=== PATIENT | female | born 1945 | race Caucasian/White ===

== ENCOUNTER 2017-05-02 18:42 | Inpatient (IN) | payer MEDICARE, BC ==
--- NOTE | 2017-05-02 19:18 | EDM.PDOC ---
ED HPI GENERAL MEDICAL PROBLEM - General Chief Complaint: Gastrointestinal Problem Stated Complaint: CHILLS NAUSEA ABDOMINAL PAIN Time Seen by Provider: 05/02/17 19:10 Source of Information: Reports: Patient History Limitations: Reports: No Limitations - History of Present Illness INITIAL COMMENTS - FREE TEXT/NARRATIVE: 72-year-old female presents the ED for evaluation of illness 8 days. Started out with fever chills nausea and diffuse abdominal discomfort. She has continued to feel unwell over the last week with intermittent rigors and chills lasting sometimes up to 10 minutes. There particular bad once again today. She has been living primarily on [employer]. She has an insulin-dependent diabetic and was recently changed from Lantus due to her insurance company [employer] not wanting to pay for this and started on I believe Traseba. She stopped this medication 3 days ago.. This was started the day before she became ill. She does have a mild paroxysmal cough not producing any sputum. Diffuse myalgia. Intermittent abdominal bloating feeling. Had some diarrhea initially but not recently. Is nauseated and does vomit at times. Denies any back pain. Has known valvular heart disease. Type II diabetic treated with insulin for greater than 10 years. She states her blood sugars have been pretty good around 120. Last week they've been running around 200. Onset: Sudden Onset Date: 04/24/17 Duration: Day(s): Location: Reports: Chest, Abdomen, Other (Intermittent nausea.) Quality: Reports: Other (Feels overall weak and tired and sick.) Severity: Moderate Improves with: Reports: None Worsens with: Reports: Eating (90 makes her feel much more abdominally bloated and nauseated.) Context: Denies: Activity, Exercise, Lifting, Sick Contact, Trauma, Other Associated Symptoms: Reports: Cough, Diaphoresis, Fever/Chills, Headaches, Loss of Appetite, Malaise, Nausea/Vomiting, Shortness of Breath, Weakness ( Intermittently.). Denies: Confusion, Chest Pain, cough w sputum, Rash, Seizure , Syncope Treatments [employer]: Reports: Other (see below) ( Severe and generalizedhas not taken any medication due to multiple allergies. ) - Related Data Allergies Allergy/AdvReac Type Severity Reaction Status Date / Time glipizide Allergy Abdominal Verified 05/02/17 20:10 Pain linagliptin [From Tradjenta] Allergy Abdominal Verified 05/02/17 20:10 Pain morphine Allergy Hallucinati Verified 05/02/17 20:08 ons oxycodone Allergy Hallucinati Verified 05/02/17 20:08 ons yeast, dried [yeast] Allergy Cough Verified 05/02/17 20:08 Home Meds: Home Meds Aspirin [Adult Low Dose Aspirin EC] 1 tab PO DAILY 05/02/17 [History] L.acidoph,Paracasei, B.lactis [Probiotic] 1 cap PO DAILY 05/02/17 [History] Losartan [Cozaar] 25 mg PO BID 05/02/17 [History] Metoprolol Succinate [Toprol Xl] 1 tab PO DAILY 05/02/17 [History] Tresiba Insulin SQ 05/02/17 [History] Past Medical History Cardiovascular History: Reports: Heart Murmur (Has known aortic stenosis and is followed yearly by cardiology with echo.), High Cholesterol, Hypertension, SOB on Exertion Musculoskeletal History: Reports: Arthritis, Back Pain, Chronic, Osteoarthritis Endocrine/Metabolic History: Reports: Diabetes, Type II (Currently controlled with insulin and more recently changed to Traseba.) Social & Family History - Living Situation & Occupation Living situation: Reports: Single Occupation: Retired ED ROS GENERAL - Review of Systems Review Of Systems: See Below Constitutional: Reports: Fever, Chills, Malaise, Weakness, Fatigue, Diaphoresis , Decreased Appetite, Weight Loss HEENT: Reports: Glasses Respiratory: Reports: Shortness of Breath, Cough, Sputum. Denies: Wheezing, Pleuritic Chest Pain, Hemoptysis (Occasional sputum production) Cardiovascular: Reports: Blood Pressure Problem, Dyspnea on Exertion (Chronic lower dependent edema usually just around the ankles.), Edema. Denies: Chest Pain, Claudication (Has known chronic hypertension), Lightheadedness, Orthopnea Endocrine: Reports: Fatigue, High Glucose (Glucose has been running around 200s usually well controlled with medications in the 03/28/49 stone.) GI/Abdominal: Reports: Abdominal Pain, Diarrhea (Has had one loose stool start with the onset of illness.), Decreased Appetite, Nausea (Intermittent vomiting chronic nausea for one week), Vomiting. Denies: Difficulty Swallowing : Reports: No Symptoms Musculoskeletal: Reports: Back Pain, Joint Pain (Knees hips lower back and shoulders at times) Skin: Reports: No Symptoms Neurological: Reports: Dizziness, Difficulty Walking (Due to weakness), Weakness Psychiatric: Reports: No Symptoms Hematologic/Lymphatic: Reports: No Symptoms Immunologic: Reports: No Symptoms ED EXAM, GI/ABD - Physical Exam Exam: See Below Exam Limited By: No Limitations General Appearance: Alert, WD/WN, Moderate Distress (Appears ill. Slightly warm to palpation. Is wearing a mask.) Eyes: Bilateral: Normal Appearance (No jaundice) Ears: Normal TMs Throat/Mouth: Normal Inspection, Normal Lips, Normal Oropharynx, Other Head: Atraumatic, Normocephalic (Tongue is mildly dry and coated) Neck: Normal Inspection, Supple, Non-Tender, Full Range of Motion. No: Carotid Bruit, Lymphadenopathy (R) Respiratory/Chest: No Accessory Muscle Use, Chest Non-Tender, Respiratory Distress (Tachypnea At rest. SPECT rate is 36/m. O2 sats are 92% on room air.), Rales (. A few rales right lung base.), Rhonchi (Scattered rhonchi throughout the posterior right lung field.) Cardiovascular: Normal Peripheral Pulses, Regular Rate, Rhythm, No Gallop, Systolic Murmur (Grade 2 holosystolic dyspneic murmur best heard at the left lateral sternal border compatible with aortic stenosis. Radiates to the right carotid artery). No: No Edema GI/Abdominal Exam: Distended (Diffuse hyperactive bowel sounds abdomen appears to be diffusely distended and mildly tympanitic to percussion upper abdomen compatible with some degree of aerophagia. Abdominal girth limits ability to palpate any solid organs. No localized area that would suggest peritonitis.), Tender (Perhaps mildly tender suprapubic left lower quadrant.), Abnormal Bowel Sounds, Other (Abdomen is very firm palpation). No: Guarding, Rigid, Rebound Back Exam: Normal Inspection, Decreased Range of Motion, Vertebral Tenderness ( Lumbar spine.). No: Full Range of Motion, CVA Tenderness (L), CVA Tenderness (R ), Muscle Spasm Extremities: Normal Inspection, Normal Range of Motion, Non-Tender, Pedal Edema (1+ pitting edema both lower extremities mostly just to just above the ankles.) Neurological: Alert, Oriented, CN II-XII Intact, Normal Cognition, No Motor/ Sensory Deficits Psychiatric: Flat Affect Skin Exam: Warm, Intact, Normal Color, No Rash EKG INTERPRETATION EKG Date: 05/02/17 Time: 20:05 Rhythm: NSR Rate (Beats/Min): 75 [place]: Normal P-Wave: Present QRS: Normal ST-T: Other (T-wave is mildly depressed in leads 1 and aVL with nonspecific finding.) QT: Prolonged (Mildly prolonged) EKG Interpretation Comments: Borderline ECG Course - Vital Signs Last Recorded V/S: Last Vital Signs Temp 36.2 C 05/02/17 21:46 Pulse 95 05/02/17 19:06 Resp 36 H 05/02/17 19:06 BP 181/54 H 05/02/17 19:06 Pulse Ox 94 L 05/02/17 19:56 - Orders/Labs/Meds Orders: Active Orders 24 hr Category Date Time Status Admission Status [Patient Status] [ADT] Routine ADT 05/02/17 22:03 Ordered Blood Glucose Check, Bedside [RC] ONETIME Care 05/02/17 19:21 Active EKG Documentation Completion [RC] STAT Care 05/02/17 19:36 Active Oxygen Therapy [RC] ASDIRECTED Care 05/02/17 19:38 Active Abdomen 1V Flat [CR] Stat Exams 05/02/17 19:23 Taken Chest 1V Frontal [CR] Stat Exams 05/02/17 19:18 Taken CULTURE BLOOD [BC] Stat Lab 05/02/17 19:33 Received CULTURE BLOOD [BC] Stat Lab 05/02/17 19:45 Received CULTURE URINE [RM] Stat Lab 05/02/17 21:04 Received Lactated Ringers [Ringers, Lactated] 1,000 ml Med 05/02/17 19:30 Active IV ASDIRECTED Levofloxacin/Dextrose 5%-Water [Levaquin in D5W 750 MG/ Med 05/02/17 21:06 Active 150 ML] 750 mg Premix Bag 1 bag IV ONETIME Magnesium Sulfate/Water [Magnesium Sulfate 2 GM in Med 05/02/17 20:57 Active Water 50 ML] 2 gm Premix Bag 1 bag IV ONETIME Blood Culture x2 Reflex Set [OM.PC] Stat Oth 05/02/17 19:19 Ordered Medication Orders Lactated Ringer's (Ringers, Lactated) 1,000 mls @ 500 mls/hr IV ASDIRECTED [facility] Last Admin: 05/02/17 19:35 Dose: 500 mls/hr Magnesium Sulfate 2 gm/ Premix 50 mls @ 25 mls/hr IV ONETIME ONE Stop: 05/02/17 22:56 Last Admin: 05/02/17 21:38 Dose: 25 mls/hr Levofloxacin/Dextrose 750 mg/ (Premix) 150 mls @ 100 mls/hr IV ONETIME ONE Stop: 05/02/17 22:35 Last Admin: 05/02/17 21:44 Dose: 100 mls/hr Labs: Laboratory Tests 05/02/17 05/02/17 05/02/17 Range/Units 19:33 19:33 19:33 WBC 15.81 H (3.98-10.04) K/mm3 RBC 4.34 (3.98-5.22) M/mm3 Hgb 12.3 (11.2-15.7) gm/L Hct 37.2 (34.1-44.9) % MCV 85.7 (79.4-94.8) fl MCH 28.3 (25.6-32.2) pg MCHC 33.1 (32.2-35.5) g/dl RDW Std Deviation 40.1 (36.4-46.3) fL Plt Count 268 (182-369) K/mm3 MPV 10.4 (9.4-12.3) fl Neutrophils % (Manual) 91 H (40-60) % Band Neutrophils % 0 (0-10) % Lymphocytes % (Manual) 6 L (20-40) % Atypical Lymphs % 0 % Monocytes % (Manual) 2 (2-10) % Eosinophils % (Manual) 1 (0.7-5.8) % Basophils % (Manual) 0 L (0.1-1.2) Platelet Estimate Adequate RBC Morph Comment Normal ESR (0-20) mm/hr PT 10.6 (8.0-13.0) SECONDS INR 0.99 Sodium 141 (136-145) mEq/L Potassium 3.2 L (3.5-5.1) mEq/L Chloride 102 (98-107) mEq/L Carbon Dioxide 25 (21-32) mEq/L Anion Gap 17.2 H (5-15) BUN 15 (7-18) mg/dL Creatinine 0.9 (0.55-1.02) mg/dL Est Cr Clr Drug Dosing TNP Estimated GFR (MDRD) > 60 (>60) mL/min BUN/Creatinine Ratio 16.7 (14-18) Glucose 211 H (83-115) mg/dL POC Glucose (83-110) mg/dL Hemoglobin A1c (4.50-6.20) % Lactic Acid (0.4-2.0) mmol/L Calcium 9.4 (8.5-10.1) mg/dL Magnesium 1.4 L (1.8-2.4) mg/dl Total Bilirubin 0.3 (0.2-1.0) mg/dL AST 16 (15-37) U/L ALT 27 (14-59) U/L Alkaline Phosphatase 84 (46-116) U/L CK-MB (CK-2) 0.6 (0-3.6) ng/ml Troponin I 0.076 H* (0.00-0.056) ng/mL C-Reactive Protein 5.9 H* (<1.0) mg/dL NT-Pro-B Natriuret Pep (0-125) pg/mL Total Protein 7.5 (6.4-8.2) g/dl Albumin 2.9 L (3.4-5.0) g/dl Globulin 4.6 gm/dL Albumin/Globulin Ratio 0.6 L (1-2) Lipase 91 (73-393) U/L Urine Color (Yellow) Urine Appearance (Clear) Urine pH (5.0-8.0) Ur Specific [place] (1.005-1.030) Urine Protein (Negative) Urine Glucose (UA) (Negative) Urine Ketones (Negative) Urine Occult Blood (Negative) Urine Nitrite (Negative) Urine Bilirubin (Negative) Urine Urobilinogen (0.2-1.0) Ur Leukocyte Esterase (Negative) Urine RBC (0-5) /hpf Urine WBC (0-5) /hpf Urine WBC Clumps (NOT SEEN) /hpf Ur Epithelial Cells (0-5) /hpf Amorphous Sediment (NOT SEEN) /hpf Urine Bacteria (FEW) /hpf Urine Mucus (FEW) /hpf Ketones (0.0-0.3) mM 05/02/17 05/02/17 05/02/17 Range/Units 19:33 19:33 19:33 WBC (3.98-10.04) K/mm3 RBC (3.98-5.22) M/mm3 Hgb (11.2-15.7) gm/L Hct (34.1-44.9) % MCV (79.4-94.8) fl MCH (25.6-32.2) pg MCHC (32.2-35.5) g/dl RDW Std Deviation (36.4-46.3) fL Plt Count (182-369) K/mm3 MPV (9.4-12.3) fl Neutrophils % (Manual) (40-60) % Band Neutrophils % (0-10) % Lymphocytes % (Manual) (20-40) % Atypical Lymphs % % Monocytes % (Manual) (2-10) % Eosinophils % (Manual) (0.7-5.8) % Basophils % (Manual) (0.1-1.2) Platelet Estimate RBC Morph Comment ESR 92 H (0-20) mm/hr PT (8.0-13.0) SECONDS INR Sodium (136-145) mEq/L Potassium (3.5-5.1) mEq/L Chloride (98-107) mEq/L Carbon Dioxide (21-32) mEq/L Anion Gap (5-15) BUN (7-18) mg/dL Creatinine (0.55-1.02) mg/dL Est Cr Clr Drug Dosing Estimated GFR (MDRD) (>60) mL/min BUN/Creatinine Ratio (14-18) Glucose (83-115) mg/dL POC Glucose (83-110) mg/dL Hemoglobin A1c 8.00 H (4.50-6.20) % Lactic Acid (0.4-2.0) mmol/L Calcium (8.5-10.1) mg/dL Magnesium (1.8-2.4) mg/dl Total Bilirubin (0.2-1.0) mg/dL AST (15-37) U/L ALT (14-59) U/L Alkaline Phosphatase (46-116) U/L CK-MB (CK-2) (0-3.6) ng/ml Troponin I (0.00-0.056) ng/mL C-Reactive Protein (<1.0) mg/dL NT-Pro-B Natriuret Pep 1381 H (0-125) pg/mL Total Protein (6.4-8.2) g/dl Albumin (3.4-5.0) g/dl Globulin gm/dL Albumin/Globulin Ratio (1-2) Lipase (73-393) U/L Urine Color (Yellow) Urine Appearance (Clear) Urine pH (5.0-8.0) Ur Specific [place] (1.005-1.030) Urine Protein (Negative) Urine Glucose (UA) (Negative) Urine Ketones (Negative) Urine Occult Blood (Negative) Urine Nitrite (Negative) Urine Bilirubin (Negative) Urine Urobilinogen (0.2-1.0) Ur Leukocyte Esterase (Negative) Urine RBC (0-5) /hpf Urine WBC (0-5) /hpf Urine WBC Clumps (NOT SEEN) /hpf Ur Epithelial Cells (0-5) /hpf Amorphous Sediment (NOT SEEN) /hpf Urine Bacteria (FEW) /hpf Urine Mucus (FEW) /hpf Ketones (0.0-0.3) mM 05/02/17 05/02/17 05/02/17 Range/Units 19:33 19:33 20:01 WBC (3.98-10.04) K/mm3 RBC (3.98-5.22) M/mm3 Hgb (11.2-15.7) gm/L Hct (34.1-44.9) % MCV (79.4-94.8) fl MCH (25.6-32.2) pg MCHC (32.2-35.5) g/dl RDW Std Deviation (36.4-46.3) fL Plt Count (182-369) K/mm3 MPV (9.4-12.3) fl Neutrophils % (Manual) (40-60) % Band Neutrophils % (0-10) % Lymphocytes % (Manual) (20-40) % Atypical Lymphs % % Monocytes % (Manual) (2-10) % Eosinophils % (Manual) (0.7-5.8) % Basophils % (Manual) (0.1-1.2) Platelet Estimate RBC Morph Comment ESR (0-20) mm/hr PT (8.0-13.0) SECONDS INR Sodium (136-145) mEq/L Potassium (3.5-5.1) mEq/L Chloride (98-107) mEq/L Carbon Dioxide (21-32) mEq/L Anion Gap (5-15) BUN (7-18) mg/dL Creatinine (0.55-1.02) mg/dL Est Cr Clr Drug Dosing Estimated GFR (MDRD) (>60) mL/min BUN/Creatinine Ratio (14-18) Glucose (83-115) mg/dL POC Glucose 206 H (83-110) mg/dL Hemoglobin A1c (4.50-6.20) % Lactic Acid 2.0 (0.4-2.0) mmol/L Calcium (8.5-10.1) mg/dL Magnesium (1.8-2.4) mg/dl Total Bilirubin (0.2-1.0) mg/dL AST (15-37) U/L ALT (14-59) U/L Alkaline Phosphatase (46-116) U/L CK-MB (CK-2) (0-3.6) ng/ml Troponin I (0.00-0.056) ng/mL C-Reactive Protein (<1.0) mg/dL NT-Pro-B Natriuret Pep (0-125) pg/mL Total Protein (6.4-8.2) g/dl Albumin (3.4-5.0) g/dl Globulin gm/dL Albumin/Globulin Ratio (1-2) Lipase (73-393) U/L Urine Color (Yellow) Urine Appearance (Clear) Urine pH (5.0-8.0) Ur Specific [place] (1.005-1.030) Urine Protein (Negative) Urine Glucose (UA) (Negative) Urine Ketones (Negative) Urine Occult Blood (Negative) Urine Nitrite (Negative) Urine Bilirubin (Negative) Urine Urobilinogen (0.2-1.0) Ur Leukocyte Esterase (Negative) Urine RBC (0-5) /hpf Urine WBC (0-5) /hpf Urine WBC Clumps (NOT SEEN) /hpf Ur Epithelial Cells (0-5) /hpf Amorphous Sediment (NOT SEEN) /hpf Urine Bacteria (FEW) /hpf Urine Mucus (FEW) /hpf Ketones 0.22 (0.0-0.3) mM //18 Range/Units 21:04 WBC (3.98-10.04) K/mm3 RBC (3.98-5.22) M/mm3 Hgb (11.2-15.7) gm/L Hct (34.1-44.9) % MCV (79.4-94.8) fl MCH (25.6-32.2) pg MCHC (32.2-35.5) g/dl RDW Std Deviation (36.4-46.3) fL Plt Count (182-369) K/mm3 MPV (9.4-12.3) fl Neutrophils % (Manual) (40-60) % Band Neutrophils % (0-10) % Lymphocytes % (Manual) (20-40) % Atypical Lymphs % % Monocytes % (Manual) (2-10) % Eosinophils % (Manual) (0.7-5.8) % Basophils % (Manual) (0.1-1.2) Platelet Estimate RBC Morph Comment ESR (0-20) mm/hr PT (8.0-13.0) SECONDS INR Sodium (136-145) mEq/L Potassium (3.5-5.1) mEq/L Chloride (98-107) mEq/L Carbon Dioxide (21-32) mEq/L Anion Gap (5-15) BUN (7-18) mg/dL Creatinine (0.55-1.02) mg/dL Est Cr Clr Drug Dosing Estimated GFR (MDRD) (>60) mL/min BUN/Creatinine Ratio (14-18) Glucose (83-115) mg/dL POC Glucose (83-110) mg/dL Hemoglobin A1c (4.50-6.20) % Lactic Acid (0.4-2.0) mmol/L Calcium (8.5-10.1) mg/dL Magnesium (1.8-2.4) mg/dl Total Bilirubin (0.2-1.0) mg/dL AST (15-37) U/L ALT (14-59) U/L Alkaline Phosphatase (46-116) U/L CK-MB (CK-2) (0-3.6) ng/ml Troponin I (0.00-0.056) ng/mL C-Reactive Protein (<1.0) mg/dL NT-Pro-B Natriuret Pep (0-125) pg/mL Total Protein (6.4-8.2) g/dl Albumin (3.4-5.0) g/dl Globulin gm/dL Albumin/Globulin Ratio (1-2) Lipase (73-393) U/L Urine Color Yellow (Yellow) Urine Appearance Cloudy H (Clear) Urine pH 5.5 (5.0-8.0) Ur Specific [place] > or = 1.030 (1.005-1.030) Urine Protein 2+ H (Negative) Urine Glucose (UA) Negative (Negative) Urine Ketones Negative (Negative) Urine Occult Blood 2+ H (Negative) Urine Nitrite Negative (Negative) Urine Bilirubin Negative (Negative) Urine Urobilinogen 0.2 (0.2-1.0) Ur Leukocyte Esterase 2+ H (Negative) Urine RBC 0-5 (0-5) /hpf Urine WBC >100 H (0-5) /hpf Urine WBC Clumps Moderate (NOT SEEN) /hpf Ur Epithelial Cells 0-5 (0-5) /hpf Amorphous Sediment Moderate H (NOT SEEN) /hpf Urine Bacteria Many H (FEW) /hpf Urine Mucus Many H (FEW) /hpf Ketones (0.0-0.3) mM Meds: Medications Generic Name Dose Route Start Last Admin Trade Name Freq PRN Reason Stop Dose Admin Lactated Ringer's 1,000 mls @ 500 mls/hr 05/02/17 19:30 05/02/17 19:35 Ringers, Lactated IV 500 mls/hr ASDIRECTED ANTONIA Administration Magnesium Sulfate 2 gm/ Premix 50 mls @ 25 mls/hr 05/02/17 20:57 05/02/17 21: 38 IV 05/02/17 22:56 25 mls/hr ONETIME ONE Administration Levofloxacin/Dextrose 750 mg/ 150 mls @ 100 mls/hr 05/02/17 21:06 05/02/17 21 :44 Premix IV 05/02/17 22:35 100 mls/hr ONETIME ONE Administration Discontinued Medications Generic Name Dose Route Start Last Admin Trade Name Freq PRN Reason Stop Dose Admin Acetaminophen 975 mg 05/02/17 19:22 05/02/17 19:35 Tylenol PO 05/02/17 19:23 975 mg NOW ONE Administration Furosemide 40 mg 05/02/17 21:04 05/02/17 21:33 Lasix IVPUSH 05/02/17 21:05 40 mg NOW ONE Administration Metoclopramide HCl 7.5 mg 05/02/17 19:26 05/02/17 19:35 Reglan IVPUSH 05/02/17 19:27 7.5 mg ONETIME ONE Administration - Radiology Interpretation Free Text/Narrative:: 72-year-old female presents to the ED with a weeklong history of fever chills with rigors at times. This suggests bacteremia. She thought that she probably had come down with the influenza but is just not getting better. She's been living primarily on [facility] over the last week she cannot eat due to nausea. She has had intermittent vomiting. She is a type II diabetic and moderately obese. Recently her diabetic control was changed from Lantus due to insurance [employer] to pay for this. She was switched to try nursing home subcutaneously daily day prior to becoming ill. He has no genitourinary complaints. She's had a few diarrhea stools. Likely I suspect she is suffering metabolic acidosis and the reason for her hyper ventilation with respiratory rate 36/m. She reports her blood sugars been running in the 200 range. She will be worked up for sepsis. A few rales are appreciated right lung bases. Rhonchi throughout the right lung compatible with possible pneumonia. Influenza screen will be done as well. I feel the will be lactated Ringer's at 500 mils per hour. Routine labs including blood cultures 2 ECG and one view of the chest and one view of the abdomen to be done. Clinically has a low-grade fever. Will give Tylenol 975 mg per ora. Reglan 7.5 mg IV for nausea relief. - Re-Assessments/Exams Free Text/Narrative Re-Assessment/Exam: 05/02/17 20:00: O2 sats drifted as low was 87%. Oxygen was therefore increased from 2-3 L/m by nasal cannula. ECG reveals sinus rhythm at 75/m without any signs of ischemia. 05/02/17 20:35 Labs revealed a elevated white count at 15.81 with a left shift of 91% neutrophils with no bands reported. Hemoglobin is 12.3 with hematocrit of 37.2. White count is normal 268,000. PT is 10.6 with an INR of 0.99. Sodium is 141 potassium slightly low at 3.2. Chloride 102 bicarbonate 25. Anion gap is mildly elevated at 17.2. BUNs 15. 0.9. GFR is greater than 60. Glucose at the bedside was 206. In the lab is 211. Hemoglobin A1c is 8.0. Lactic acid is 2.0. Calcium 9.4 magnesium low at 1.4. Bilirubin 0.3. Liver function otherwise normal CK-MB 0.6 troponin I is mildly elevated at 0.076 crit C-reactive protein is 5.9 BNP is 1381. Lipase is 91 ketones are 0.22. Patient is currently in the x -ray suite. Elevated troponin I is likely secondary to mild congestive failure but will need to be trended. ECG does not show any signs of ischemia. 05/02/17 20:56 chest x-ray reveals borderline cardiomegaly with diffuse vascular congestion but no infiltrates to suggest a pneumonia. No pleural effusions evident. X-ray of the abdomen shows stool throughout the right hemicolon air scattered throughout the remainder the colon but no sign of bowel obstruction or other obvious problems. Awaiting urinalysis. If this is normal will proceed with CT of the abdomen and pelvis with oral and IV contrast. She has combination of mild hypokalemia and hypomagnesemia. I will give HER-2 grams of magnesium intravenously at this time. No need for antibiotics but holding off until source of infection is clarified. We'll also give her Lasix 40 mg IV to improve her hypoxic state 2 to mild congestive failure. 05/02/17 21:40 Urinalysis has returned and reveals gross infective process with greater than 100 pus cells per per field and numerous clumps of WBCs. I will therefore speak with the on-call hospitalist with a view to admission to hospital regarding urinary tract infection with bacteremia. This would suggest an upper urinary tract infection. 05/02/17 22:05 I have spoken with on-call hospitalist-- Dr. Lewis and he is accepted care of this patient. Patient is to be admitted to the med surgery floor on telemetry. Departure - Departure Time of Disposition: 22:07 Disposition: Admitted As Inpatient 65 Condition: Fair Clinical Impression: Pyelonephritis, Hypomagnesemia, Hypokalemia, Elevated troponin I level CHF (congestive heart failure) Qualifiers: Heart failure type: diastolic Heart failure chronicity: acute on chronic Qualified Code(s): I50.33 - Acute on chronic diastolic (congestive) heart failure - Discharge Information Referrals: Sona Ace, TAPPER BIT [Primary Care Provider] - Forms: ED Department Discharge - My Orders Last 24 Hours: My Active Orders 05/02/17 19:18 Chest 1V Frontal [CR] Stat 05/02/17 19:19 Blood Culture x2 Reflex Set [OM.PC] Stat 05/02/17 19:21 Blood Glucose Check, Bedside [RC] ONETIME 05/02/17 19:23 Abdomen 1V Flat [CR] Stat 05/02/17 19:30 Lactated Ringers [Ringers, Lactated] 1,000 ml IV ASDIRECTED 05/02/17 19:33 CULTURE BLOOD [BC] Stat 05/02/17 19:36 EKG Documentation Completion [RC] STAT 05/02/17 19:38 Oxygen Therapy [RC] ASDIRECTED 05/02/17 19:45 CULTURE BLOOD [BC] Stat 05/02/17 20:57 Magnesium Sulfate/Water [Magnesium Sulfate 2 GM in Water 50 ML] 2 gm Premix Bag 1 bag IV ONETIME 05/02/17 21:04 CULTURE URINE [RM] Stat 05/02/17 21:06 Levofloxacin/Dextrose 5%-Water [Levaquin in D5W 750 MG/150 ML] 750 mg Premix Bag 1 bag IV ONETIME 05/02/17 22:03 Admission Status [Patient Status] [ADT] Routine - Assessment/Plan Last 24 Hours: My Active Orders 05/02/17 19:18 Chest 1V Frontal [CR] Stat 05/02/17 19:19 Blood Culture x2 Reflex Set [OM.PC] Stat 05/02/17 19:21 Blood Glucose Check, Bedside [RC] ONETIME 05/02/17 19:23 Abdomen 1V Flat [CR] Stat 05/02/17 19:30 Lactated Ringers [Ringers, Lactated] 1,000 ml IV ASDIRECTED 05/02/17 19:33 CULTURE BLOOD [BC] Stat 05/02/17 19:36 EKG Documentation Completion [RC] STAT 05/02/17 19:38 Oxygen Therapy [RC] ASDIRECTED 05/02/17 19:45 CULTURE BLOOD [BC] Stat 05/02/17 20:57 Magnesium Sulfate/Water [Magnesium Sulfate 2 GM in Water 50 ML] 2 gm Premix Bag 1 bag IV ONETIME 05/02/17 21:04 CULTURE URINE [RM] Stat 05/02/17 21:06 Levofloxacin/Dextrose 5%-Water [Levaquin in D5W 750 MG/150 ML] 750 mg Premix Bag 1 bag IV ONETIME 05/02/17 22:03 Admission Status [Patient Status] [ADT] Routine
[2017-05-02] MEDS ORDERED: Acetaminophen 325 MG Tab PO ONE (19:22)
[2017-05-02] MEDS ORDERED: Metoclopramide 10 MG/2 ML SDV IVPUSH ONE (19:26)
[2017-05-02] MEDS ORDERED: Lactated Ringers 1,000 ML IV SCH (19:30)
[2017-05-02] MEDS ORDERED: Magnesium Sulfate/Water 2 GM in Premix Bag 1 BAG IV ONE (20:57)
[2017-05-02] MEDS ORDERED: Furosemide 40 MG/4 ML VIAL IVPUSH ONE (21:04)
[2017-05-02] MEDS ORDERED: Levofloxacin/Dextrose 5%-Water 750 MG in Premix Bag 1 BAG IV ONE (21:06)
[2017-05-02] MEDS ORDERED: Sodium Chloride 0.9% 1,000 ML IV SCH (22:15)
[2017-05-02] MEDS ORDERED: hydrALAZINE 20 MG/ML SDV IVPUSH PRN (23:39)
[2017-05-02] MEDS ORDERED: Metoprolol Tartrate 5 MG/5 ML SDV IVPUSH PRN (23:39)
[2017-05-02] MEDS ORDERED: LORazepam 2 MG/ML SDV IVPUSH PRN (23:39)
[2017-05-02] MEDS ORDERED: Docusate Sodium 100 MG Cap PO PRN (23:40)
[2017-05-02] MEDS ORDERED: Polyethylene Glycol 3350 Powder 17 GM Packet PO PRN (23:40)
[2017-05-02] MEDS ORDERED: Bisacodyl 5 MG Tab PO PRN (23:40)
[2017-05-02] MEDS ORDERED: Albuterol/Ipratropium 3.0-0.5 MG/3 ML Neb Soln NEB PRN (23:40)
[2017-05-02] MEDS ORDERED: LORazepam 2 MG/ML SDV IV PRN (23:40)
[2017-05-02] MEDS ORDERED: Acetaminophen/HYDROcodone 325-5 MG Tab PO PRN (23:40)
[2017-05-02] MEDS ORDERED: Promethazine 12.5 MG in Sodium Chloride 0.9% 50 ML IV PRN (23:40)
[2017-05-02] MEDS ORDERED: Temazepam 7.5 MG Cap PO PRN (23:40)
--- NOTE | 2017-05-02 23:49 | PCM.HP ---
H&P History of Present Illness - General Date of Service: 05/02/17 Admit Problem/Dx: Admission Diagnosis/Problem Admission Diagnosis/Problem Upper urinary tract infection Source of Information: Patient, Old Records, Provider, RN Notes Reviewed History Limitations: Reports: No Limitations - History of Present Illness Initial Comments - Free Text/Narative: This is a 72 yo elderly white female with past medical hx/o HTN, HLD, SOB on Exertion, OA/DJD, Fibromyalgia, Back Pain, and who comes in for further evaluation of ongoing illness that started 8 days ago. Patient started initially with fever and chills then subsequently developed abdominal discomfort associated with nausea and abdominal bloating. She is not able to keep any solid food. In fact, she is mostly taking in gatorade to stay hydrated. Patient carries a 10 year hx/o DM2 on insulin regimen with Tresiba. At this point, she also reports paroxysmal non-productive cough with diffuse myalgia, reduced appetite and generalized weakness. Her initial diagnostic workup shows a CBC remarkable for WBC of 15.81, neutrophils of 91%, lymphocytes of 6%, and ESR of 92. Her chemistry is remarkable for potassium of 3.2, anion gap of 17.2, glucose of 211, hemoglobin A1c of 8, magnesium of 1.4, troponin of 0.076, C-reactive protein of 5.19, proBNP of 1381, and albumin at 2.9. Her UA is suggestive of urinary tract infection. Her chest and abdominal x-rays both show no acute abnormal findings. Patient is being admitted for acute viral illness and urinary tract infection. She is full code. - Related Data Allergies/Adverse Reactions: Allergies Allergy/AdvReac Type Severity Reaction Status Date / Time glipizide AdvReac Abdominal Verified 05/03/17 07:06 Pain linagliptin [From Tradjenta] AdvReac Abdominal Verified 05/03/17 07:06 Pain morphine AdvReac Hallucinati Verified 05/03/17 07:06 ons oxycodone AdvReac Hallucinati Verified 05/03/17 07:06 ons yeast, dried [yeast] AdvReac Cough Verified 05/03/17 07:06 Home Medications: Home Meds Aspirin [Adult Low Dose Aspirin EC] 1 tab PO DAILY 05/02/17 [History] L.acidoph,Paracasei, B.lactis [Probiotic] 1 cap PO DAILY 05/02/17 [History] Losartan [Cozaar] 25 mg PO BID 05/02/17 [History] Metoprolol Succinate [Toprol Xl] 1 tab PO DAILY 05/02/17 [History] Tresiba Insulin SQ 05/02/17 [History] Past Medical History HEENT History: Reports: Cataract, Macular Degeneration Cardiovascular History: Reports: Heart Murmur (Has known aortic stenosis and is followed yearly by cardiology with echo.), High Cholesterol, Hypertension, SOB on Exertion Gastrointestinal History: Reports: Irritable Bowel Syndrome METALSMITH History: Reports: Musculoskeletal History: Reports: Arthritis, Back Pain, Chronic, Osteoarthritis Endocrine/Metabolic History: Reports: Diabetes, Type II (Currently controlled with insulin and more recently changed to Traseba.) Oncologic (Cancer) History: Reports: Basal Cell Carcinoma - Past Surgical History HEENT Surgical History: Reports: Cataract Surgery Cardiovascular Surgical History: Reports: Valve Replacement Musculoskeletal Surgical History: Reports: Knee Replacement, Shoulder Surgery Social & Family History - Family History Family Medical History: Noncontributory - Tobacco Use Smoking Status *Q: Never Smoker - Recreational Drug Use Recreational Drug Use: No - Living Situation & Occupation Living situation: Reports: Single Occupation: Retired H&P Review of Systems - Review of Systems: Review Of Systems: See Below General: Reports: Fever, Chills, Malaise, Weakness, Fatigue, Decreased Appetite HEENT: Reports: No Symptoms Pulmonary: Reports: Shortness of Breath, Cough, Sputum Cardiovascular: Reports: Dyspnea on Exertion, Edema, Blood Pressure Problem Gastrointestinal: Reports: Abdominal Pain, Diarrhea, Decreased Appetite, Nausea , Vomiting. Denies: Anorexia, Difficulty Swallowing Genitourinary: Reports: No Symptoms Musculoskeletal: Reports: Back Pain, Joint Pain Skin: Reports: Diaphoresis. Denies: Cyanosis, Jaundice, Mottled, Pallor, Bruising Psychiatric: Denies: Confusion, Depression, Mood Lability, Anxiety, Hallucinations, Suicidal Ideation Neurological: Reports: Weakness. Denies: Confusion, Dizziness, Syncope, Difficulty Walking, Gait Disturbance Hematologic/Lymphatic: Reports: No Symptoms Immunologic: Reports: No Symptoms Exam - Exam Exam: See Below - Vital Signs Vital Signs: Last Vital Signs Temp 36.2 C 05/02/17 21:46 Pulse 95 05/02/17 19:06 Resp 36 H 05/02/17 19:06 BP 181/54 H 05/02/17 19:06 Pulse Ox 94 L 05/02/17 19:56 - Exam Quality Assessment: Supplemental Oxygen General: Alert, Oriented, Cooperative, Mild Distress HEENT: Conjunctiva Clear, EACs Clear, EOMI, Hearing Intact, Mucosa Moist & [employer] , Nares Patent, Normal Nasal Septum, Posterior Pharynx Clear, Pupils Equal, Pupils Reactive Neck: Supple, Trachea Midline, +2 Carotid Pulse wo Bruit Lungs: Clear to Auscultation, Normal Respiratory Effort Cardiovascular: Regular Rate, Regular Rhythm, Systolic Murmur GI/Abdominal Exam: Normal Bowel Sounds, Soft, Non-Tender, No Organomegaly, No Distention, No Abnormal Bruit (Female) Exam: Deferred Rectal (Female) Exam: Deferred Back Exam: Normal Inspection, Decreased Range of Motion Extremities: Normal Inspection, Normal Range of Motion, Non-Tender, No Pedal Edema, Normal Capillary Refill Peripheral Pulses: 2+: Posterior Tibial (L), Posterior Tibial (R), Dorsalis Pedis (L), Dorsalis Pedis (R) Skin: Warm, Dry, Intact Neuro Extensive - Mental Status: Oriented x3, Normal Cognition, Memory Intact Neuro Extensive - Motor, Sensory, Reflexes: CN II-XII Intact, Normal Gait Psychiatric: Alert, Normal Affect, Normal Mood - Patient Data Result Diagrams: 05/03/17 05:36 05/03/17 05:36 EKG INTERPRETATION EKG Date: 05/02/17 Time: 20:05 Rhythm: NSR Rate (Beats/Min): 75 [place]: Normal P-Wave: Present QRS: Normal QT: Prolonged *Q Meaningful Use (ADM) - VTE *Q VTE Criteria *Q: - Stroke *Q Stroke Criteria *Q: - AMI *Q AMI Criteria *Q: Problem List Initiated/Reviewed/Updated: Yes Orders Last 24hrs: Active Orders 24 hr Category Date Time Status Sodium Chloride 0.9% [Normal Saline] 1,000 ml Med 05/02/17 22:15 Active IV ASDIRECTED Medication Orders Lactated Ringer's (Ringers, Lactated) 1,000 mls @ 500 mls/hr IV ASDIRECTED ANTONIA Last Admin: 05/02/17 19:35 Dose: 500 mls/hr Sodium Chloride (Normal Saline) 1,000 mls @ 100 mls/hr IV ASDIRECTED ANTONIA Last Admin: 05/02/17 22:09 Dose: 100 mls/hr Assessment/Plan Comment:: Assessment/Plan: Acute: Viral Illness - CXR shows no obvious infiltrates - Influenza screening negative - Respiratory Panel - Supportive Care Cystitis - UA suggestive of UTI - Risk factors: DM2 - UA Cx pending - Received IV Levaquin in ED; will switch to Rocephin Generalized Weakness - 2/2 on going illness and poor oral intake - PT/OT consult Poor Appetite - Offered stimulant; refused - Hopefully it'll get better Electrolytes Abnormality - K 3.2 and Mg 1.4 - Replete and monitor Chronic: HTN HLD SOB on Exertion OA/DJD Back Pain Fibromyalgia DM2 Plan: Admit to the floor Routine AM Labs Resume Home Meds Blood Culture x2 Monospot and Respiratory Panel PT/OT consult O2 to wean off SW/CM for d/c planning Code Status: 1
[2017-05-02] MEDS ORDERED: 50% Dextrose in Water 50 ML Syringe IVPUSH PRN (23:59)
[2017-05-03] MEDS ORDERED: Potassium Chloride 20 MEQ Tab.ER PO ONE (00:30)
[2017-05-03] MEDS: Potassium Chloride 20 MEQ Tab.ER PO SCH ×2 (05:04→08:24)
[2017-05-03] MEDS ORDERED: Azithromycin 500 MG in Sodium Chloride 0.9% 250 ML IV SCH (07:00)
--- NOTE | 2017-05-03 07:16 | PCM.PN ---
- General Info Date of Service: 05/03/17 Admission Dx/Problem (Free Text): Admission Diagnosis/Problem Admission Diagnosis/Problem Upper urinary tract infection Subjective Update: Follow Up Functional Status: Reports: Pain Controlled, Tolerating Diet, Ambulating, Urinating - Review of Systems General: Denies: Fever, Weakness, Fatigue, Malaise HEENT: Reports: No Symptoms Pulmonary: Denies: Shortness of Breath, Cough, Sputum Cardiovascular: Denies: Chest Pain, Palpitations, Dyspnea on Exertion, Lightheadedness Gastrointestinal: Denies: Abdominal Pain, Constipation, Decreased Appetite, Diarrhea, Difficulty Swallowing, Nausea, Vomiting Genitourinary: Reports: No Symptoms Musculoskeletal: Reports: No Symptoms Skin: Denies: Cyanosis, Mottled, Pallor, Diaphoresis, Rash Neurological: Denies: Confusion, Difficulty Walking, Weakness, Gait Disturbance Psychiatric: Denies: Depression, Anxiety, Agitation, Hallucinations Systems Review Comment:: No significant overnight or acute issues. She did not sleep well last night but refused to take sleeping pill due to "nightmares or bad dreams" associated with it. She otherwise feels better and no other complaints. Her K and Mg level slightly low this morning. She is pos for GNR on UA culture. - Patient Data Vitals - Most Recent: Last Vital Signs Temp 36.4 C 05/02/17 23:04 Pulse 71 05/03/17 05:13 Resp 16 05/03/17 05:13 BP 122/68 05/03/17 05:13 Pulse Ox 94 L 05/03/17 05:13 Weight - Most Recent: 103.737 kg I&O - Last 24 Hours: Intake & Output 05/02/17 05/03/17 05/03/17 22:59 06:59 14:59 Intake Total 1486 Output Total 2200 Balance -714 Lab Results Last 24 Hours: Laboratory Results - last 24 hr 05/03/17 05/03/17 05/03/17 Range/Units 05:36 05:36 05:39 WBC 13.16 H (3.98-10.04) K/mm3 RBC 4.12 (3.98-5.22) M/mm3 Hgb 11.6 (11.2-15.7) gm/L Hct 35.5 (34.1-44.9) % MCV 86.2 (79.4-94.8) fl MCH 28.2 (25.6-32.2) pg MCHC 32.7 (32.2-35.5) g/dl RDW Std Deviation 40.0 (36.4-46.3) fL Plt Count 274 (182-369) K/mm3 MPV 10.4 (9.4-12.3) fl Neut % (Auto) 83.4 H (34.0-71.1) % Lymph % (Auto) 9.7 L (19.3-51.7) % [place] % (Auto) 5.5 (4.7-12.5) % Eos % (Auto) 0.7 (0.7-5.8) Baso % (Auto) 0.2 (0.1-1.2) % Neut # (Auto) 10.98 H (1.56-6.13) K/mm3 Lymph # (Auto) 1.27 (1.18-3.74) K/mm3 [place] # (Auto) 0.72 H (0.24-0.36) K/mm3 Eos # (Auto) 0.09 (0.04-0.36) K/mm3 Baso # (Auto) 0.03 (0.01-0.08) K/mm3 Manual Slide Review Abnormal smear Sodium 139 (136-145) mEq/L Potassium 3.4 L (3.5-5.1) mEq/L Chloride 100 (98-107) mEq/L Carbon Dioxide 29 (21-32) mEq/L Anion Gap 13.4 (5-15) BUN 14 (7-18) mg/dL Creatinine 1.0 (0.55-1.02) mg/dL Est Cr Clr Drug Dosing 45.08 mL/min Estimated GFR (MDRD) 54 (>60) mL/min BUN/Creatinine Ratio 14.0 (14-18) Glucose 216 H (83-115) mg/dL POC Glucose 225 H (83-110) mg/dL Calcium 8.7 (8.5-10.1) mg/dL Magnesium 1.7 L (1.8-2.4) mg/dl C-Reactive Protein 6.8 H* (<1.0) mg/dL Med Orders - Current: Current Medications Acetaminophen (Tylenol) 650 mg PO Q4H PRN PRN Reason: Pain (Mild 1-3)/fever Hydrocodone Bitart/Acetaminophen ([place] 325-5 Mg) 1 tab PO Q4H PRN PRN Reason: Pain (moderate 4-6) Albuterol/Ipratropium (Duoneb 3.0-0.5 Mg/3 Ml) 3 ml NEB Q4H PRN PRN Reason: Shortness Of Breath/wheezing Aspirin (Halfprin) 81 mg PO DAILY [facility] Bisacodyl (Dulcolax) 5 mg PO DAILY PRN PRN Reason: Constipation Dextrose/Water (Dextrose 50% In Water) 50 ml IVPUSH ASDIRECTED PRN PRN Reason: Hypoglycemia Docusate Sodium (Colace) 100 mg PO BID PRN PRN Reason: Constipation Enoxaparin Sodium (Lovenox) 40 mg SUBCUT DAILY [facility] Hydralazine HCl (Apresoline) 20 mg IVPUSH Q4H PRN PRN Reason: Hypertension Lactated Ringer's (Ringers, Lactated) 1,000 mls @ 500 mls/hr IV ASDIRECTED [facility] Last Admin: 05/02/17 19:35 Dose: 500 mls/hr Sodium Chloride (Normal Saline) 1,000 mls @ 100 mls/hr IV ASDIRECTED [facility] Last Admin: 05/02/17 22:09 Dose: 100 mls/hr Promethazine HCl 12.5 mg/ (Sodium Chloride) 50.5 mls @ 100 mls/hr IV Q6H PRN PRN Reason: Nausea/Vomiting Azithromycin 500 mg/ Sodium (Chloride) 250 mls @ 250 mls/hr IV Q24H [facility] Last Admin: 05/03/17 06:37 Dose: 250 mls/hr Insulin Aspart (Novolog) 0 unit SUBCUT QIDACANDBED [facility] PRN Reason: Protocol Lorazepam (Ativan) 2 mg IVPUSH Q4H PRN PRN Reason: Seizures Lorazepam (Ativan) 1 mg IV Q6H PRN PRN Reason: Anxiety Losartan Potassium (Cozaar) 25 mg PO BID [facility] Magnesium Sulfate (Pharmacy To Dose - Magnesium Replacement) 0 dose .XX ASDIRECTED PRN PRN Reason: RX TO WATCH MAG LEVELS Metoprolol Succinate (Toprol Xl) 50 mg PO DAILY [facility] Metoprolol Tartrate (Lopressor) 5 mg IVPUSH Q4H PRN PRN Reason: Tachycardia Ondansetron HCl (Zofran) 4 mg IV Q6H PRN PRN Reason: Nausea/Vomiting Polyethylene Glycol (Miralax) 17 gm PO DAILY PRN PRN Reason: Constipation Potassium Chloride (Pharmacy To Dose - Potassium Replacement) 0 dose .XX ASDIRECTED PRN PRN Reason: RX TO WATCH K LEVELS Potassium Chloride (Klor-Con M20) 40 meq PO Q4H ANTONIA Stop: 05/03/17 08:31 Last Admin: 05/03/17 05:04 Dose: 40 meq Saccharomyces Boulardii (Florastor) 250 mg PO DAILY [facility] Senna/Docusate Sodium (Senna Plus) 1 tab PO BID PRN PRN Reason: Constipation Temazepam (Restoril) 7.5 mg PO BEDTIME PRN PRN Reason: Sleep Discontinued Medications Acetaminophen (Tylenol) 975 mg PO NOW ONE Stop: 05/02/17 19:23 Last Admin: 05/02/17 19:35 Dose: 975 mg Furosemide (Lasix) 40 mg IVPUSH NOW ONE Stop: 05/02/17 21:05 Last Admin: 05/02/17 21:33 Dose: 40 mg Magnesium Sulfate 2 gm/ Premix 50 mls @ 25 mls/hr IV ONETIME ONE Stop: 05/02/17 22:56 Last Admin: 05/02/17 21:38 Dose: 25 mls/hr Levofloxacin/Dextrose 750 mg/ (Premix) 150 mls @ 100 mls/hr IV ONETIME ONE Stop: 05/02/17 22:35 Last Admin: 05/02/17 21:44 Dose: 100 mls/hr Metoclopramide HCl (Reglan) 7.5 mg IVPUSH ONETIME ONE Stop: 05/02/17 19:27 Last Admin: 05/02/17 19:35 Dose: 7.5 mg Potassium Chloride (Klor-Con M20) 40 meq PO STAT ONE Stop: 05/03/17 00:31 Last Admin: 05/03/17 00:44 Dose: 40 meq - Exam Quality Assessment: No: Supplemental Oxygen General: Alert, Oriented, Cooperative, No Acute Distress HEENT: Pupils Equal, Pupils Reactive, EOMI, Mucous Membr. Moist/[place] Neck: Supple, Trachea Midline, No JVD, No Thyromegaly Lungs: Clear to Auscultation, Normal Respiratory Effort Cardiovascular: Regular Rate, Regular Rhythm GI/Abdominal Exam: Normal Bowel Sounds, Soft, Non-Tender, No Organomegaly, No Distention, No Abnormal Bruit, No Mass (Female) Exam: Deferred Back Exam: Normal Inspection, Decreased Range of Motion Extremities: Normal Inspection, Normal Range of Motion, Non-Tender, No Pedal Edema, Normal Capillary Refill Peripheral Pulses: 2+: Dorsalis Pedis (L), Dorsalis Pedis (R) Skin: Warm, Dry, Intact Neurological: No New Focal Deficit Psy/Mental Status: Alert, Normal Affect, Normal Mood - Problem List Review Problem List Initiated/Reviewed/Updated: Yes - My Orders Last 24 Hours: My Active Orders 05/02/17 23:39 LORazepam [Ativan] 2 mg IVPUSH Q4H PRN Metoprolol Tartrate [Lopressor] 5 mg IVPUSH Q4H PRN hydrALAZINE [Apresoline] 20 mg IVPUSH Q4H PRN 05/02/17 23:40 Height and Weight [RC] 0400 Intake and Output [RC] 04,16 VTE/DVT Education [RC] 10,22 Vital Signs [RC] Q4HR Acetaminophen [Tylenol] 650 mg PO Q4H PRN Acetaminophen/HYDROcodone [[place] 325-5 MG] 1 tab PO Q4H PRN Albuterol/Ipratropium [DuoNeb 3.0-0.5 MG/3 ML] 3 ml NEB Q4H PRN Bisacodyl [Dulcolax] 5 mg PO DAILY PRN Docusate Sodium [Colace] 100 mg PO BID PRN Docusate Sodium/Sennosides [Senna Plus] 1 tab PO BID PRN LORazepam [Ativan] 1 mg IV Q6H PRN Ondansetron [Zofran] 4 mg IV Q6H PRN Polyethylene Glycol 3350 [MiraLAX] 17 gm PO DAILY PRN Promethazine [Phenergan] 12.5 mg Sodium Chloride 0.9% [Normal Saline] 50 ml IV Q6H Temazepam [Restoril] 7.5 mg PO BEDTIME PRN Resuscitation Status Routine 05/02/17 23:41 Sequential Compression Device [OM.PC] Per Unit Routine 05/02/17 23:45 Antiembolic Devices [RC] 10,22 Magnesium Rep Pharmacy to Dose [Pharmacy to Dose - Magnesium Replacement] 0 dose .XX ASDIRECTED PRN Potassium Rep Pharmacy to Dose [Pharmacy to Dose - Potassium Replacement] 0 dose .XX ASDIRECTED PRN 05/02/17 23:47 Consult to Spiritual Care [CONS] Routine OT Evaluation and Treatment [CONS] Routine PT Evaluation and Treatment [CONS] Routine Respiratory Care Assess and Treatment [CONS] Routine 05/02/17 23:48 RESPIRATORY PANEL BY PCR [MREF] Stat 05/02/17 23:59 Blood Glucose Check, Bedside [RC] QIDACANDBED Dextrose 50% in Water 50 ml IVPUSH ASDIRECTED PRN 05/02/17 Dinner Regular Diet [DIET] 05/03/17 04:30 Potassium Chloride [Klor-Con M20] 40 meq PO Q4H 05/03/17 07:00 Azithromycin [Zithromax] 500 mg Sodium Chloride 0.9% [Normal Saline] 250 ml IV Q24H Insulin Aspart [NovoLOG] See Protocol SUBCUT QIDACANDBED 05/03/17 09:00 Aspirin [Halfprin] 81 mg PO DAILY Enoxaparin [Lovenox] 40 mg SUBCUT DAILY Losartan [Cozaar] 25 mg PO BID Metoprolol Succinate [Toprol XL] 50 mg PO DAILY Saccharomyces Boulardii [Florastor] 250 mg PO DAILY 05/04/17 05:11 BASIC METABOLIC PANEL,BMP [CHEM] AM C-REACTIVE PROTEIN [CHEM] AM CBC WITH AUTO DIFF [HEME] AM MAGNESIUM [CHEM] AM 05/05/17 05:11 BASIC METABOLIC PANEL,BMP [CHEM] AM C-REACTIVE PROTEIN [CHEM] AM CBC WITH AUTO DIFF [HEME] AM MAGNESIUM [CHEM] AM 05/06/17 05:11 BASIC METABOLIC PANEL,BMP [CHEM] AM C-REACTIVE PROTEIN [CHEM] AM CBC WITH AUTO DIFF [HEME] AM MAGNESIUM [CHEM] AM 05/07/17 05:11 C-REACTIVE PROTEIN [CHEM] AM CBC WITH AUTO DIFF [HEME] AM MAGNESIUM [CHEM] AM - Plan Plan:: Assessment/Plan: Acute: Viral Illness - CXR shows no obvious infiltrates - Influenza and Mononucleosis screening both negative - Respiratory Panel and Blood Cultures - pending - Supportive Care Cystitis - UA pos for GNR - Risk factors: DM2 - UA Cx pending - Rocephin 1 gram IV daily Generalized Weakness - 2/2 on going illness and poor oral intake - Continue PT/OT Resolved: S/p Poor Appetite - Offered stimulant; refused Chronic: HTN HLD SOB on Exertion OA/DJD Back Pain DM2 Plan: She is much better clinically D/c Azithromycin Routine AM Labs Continue PT/OT consult SW/CM for d/c planning Encourage to ambulate as tolerated Code Status: 1 Possible d/c in AM
[2017-05-03] MEDS: Losartan 25 MG Tab PO SCH ×2 (08:24→21:42)
[2017-05-03] MEDS: Saccharomyces Boulardii (Probiotic) 250 MG Cap PO SCH (08:24)
[2017-05-03] MEDS: Metoprolol Succinate 50 MG Tab.ER PO SCH (08:24)
[2017-05-03] MEDS: Aspirin 81 MG Tab.EC PO SCH (08:26)
[2017-05-03] MEDS: Insulin Aspart 100 Units/ML 3 ML Pen SUBCUT SCH ×4 (08:28→20:59)
[2017-05-03] MEDS: Enoxaparin 40 MG/0.4 ML Syringe SUBCUT SCH (08:31)
[2017-05-03] MEDS ORDERED: Potassium Chloride 20 MEQ Tab.ER PO SCH (09:00)
[2017-05-03] MEDS ORDERED: Magnesium Oxide 400 MG Tab PO ONE (09:00)
--- NOTE | 2017-05-03 09:39 | CR ---
Abdomen: Supine view of the abdomen was obtained. Comparison: No prior study. Scoliosis and degenerative change are seen within the spine. Mild medial joint space narrowing is noted within both hips. Bowel gas pattern appears within normal limits. No abnormal calcifications are seen. Impression: 1. Incidental findings. Diagnostic code #2
--- NOTE | 2017-05-03 09:39 | CR ---
Chest: Frontal view of the chest was obtained. Comparison: No previous study. Heart size at the upper limits of normal. Tortuous thoracic aorta is seen. Central lung markings are mildly increased which are felt to represent mild chronic pulmonary vascular congestion. No acute pulmonary densities are seen. Bony structures are grossly intact. Previous sternotomy is noted. Impression: 1. Findings as noted above. Nothing acute is suspected. Diagnostic code #2
[2017-05-03] MEDS: Acetaminophen 325 MG Tab PO PRN ×2 (12:45→19:44)
[2017-05-03] MEDS ORDERED: cefTRIAXone 1 GM in Sodium Chloride 0.9% 100 ML IV SCH (14:00)
--- NOTE | 2017-05-04 07:03 | PCM.PN ---
- General Info Date of Service: 05/04/17 Admission Dx/Problem (Free Text): Admission Diagnosis/Problem Admission Diagnosis/Problem Upper urinary tract infection Subjective Update: Follow Up Functional Status: Reports: Pain Controlled, Tolerating Diet, Ambulating, Urinating. Denies: New Symptoms - Review of Systems General: Reports: Fever, Chills. Denies: Weakness, Fatigue, Malaise HEENT: Reports: No Symptoms Pulmonary: Denies: Shortness of Breath Cardiovascular: Denies: Chest Pain, Palpitations, Dyspnea on Exertion Gastrointestinal: Denies: Abdominal Pain, Nausea, Vomiting Genitourinary: Reports: No Symptoms Musculoskeletal: Reports: No Symptoms Skin: Denies: Cyanosis, Mottled, Pallor, Diaphoresis, Rash Neurological: Denies: Confusion, Difficulty Walking, Weakness, Gait Disturbance Psychiatric: Denies: Depression, Anxiety, Agitation, Hallucinations Systems Review Comment:: She slept better overnight. She complaints about nausea but w/o emesis. She also reports intermittent fever and chills. Her WBC and CRP levels seem to be worse. - Patient Data Vitals - Most Recent: Last Vital Signs Temp 37.1 C 05/04/17 04:44 Pulse 85 05/04/17 04:44 Resp 16 05/04/17 04:44 BP 134/60 05/04/17 04:44 Pulse Ox 97 05/04/17 04:44 Weight - Most Recent: 104.553 kg I&O - Last 24 Hours: Intake & Output 05/03/17 05/04/17 05/04/17 22:59 06:59 14:59 Intake Total 1572 500 Output Total 750 200 Balance 822 300 Lab Results Last 24 Hours: Laboratory Results - last 24 hr 05/03/17 05/03/17 05/03/17 Range/Units 10:50 16:53 20:58 WBC (3.98-10.04) K/mm3 RBC (3.98-5.22) M/mm3 Hgb (11.2-15.7) gm/L Hct (34.1-44.9) % MCV (79.4-94.8) fl MCH (25.6-32.2) pg MCHC (32.2-35.5) g/dl RDW Std Deviation (36.4-46.3) fL Plt Count (182-369) K/mm3 MPV (9.4-12.3) fl Neut % (Auto) (34.0-71.1) % Lymph % (Auto) (19.3-51.7) % [place] % (Auto) (4.7-12.5) % Eos % (Auto) (0.7-5.8) Baso % (Auto) (0.1-1.2) % Neut # (Auto) (1.56-6.13) K/mm3 Lymph # (Auto) (1.18-3.74) K/mm3 [place] # (Auto) (0.24-0.36) K/mm3 Eos # (Auto) (0.04-0.36) K/mm3 Baso # (Auto) (0.01-0.08) K/mm3 POC Glucose 224 H 306 H 202 H (83-110) mg/dL 05/04/17 05/04/17 Range/Units 06:05 06:26 WBC 17.03 H (3.98-10.04) K/mm3 RBC 3.88 L (3.98-5.22) M/mm3 Hgb 10.9 L (11.2-15.7) gm/L Hct 33.8 L (34.1-44.9) % MCV 87.1 (79.4-94.8) fl MCH 28.1 (25.6-32.2) pg MCHC 32.2 (32.2-35.5) g/dl RDW Std Deviation 41.1 (36.4-46.3) fL Plt Count 231 (182-369) K/mm3 MPV 10.6 (9.4-12.3) fl Neut % (Auto) 91.2 H (34.0-71.1) % Lymph % (Auto) 4.1 L (19.3-51.7) % [place] % (Auto) 3.9 L (4.7-12.5) % Eos % (Auto) 0.2 L (0.7-5.8) Baso % (Auto) 0.2 (0.1-1.2) % Neut # (Auto) 15.56 H (1.56-6.13) K/mm3 Lymph # (Auto) 0.69 L (1.18-3.74) K/mm3 [place] # (Auto) 0.66 H (0.24-0.36) K/mm3 Eos # (Auto) 0.03 L (0.04-0.36) K/mm3 Baso # (Auto) 0.03 (0.01-0.08) K/mm3 POC Glucose 216 H (83-110) mg/dL Med Orders - Current: Current Medications Acetaminophen (Tylenol) 650 mg PO Q4H PRN PRN Reason: Pain (Mild 1-3)/fever Last Admin: 05/03/17 19:44 Dose: 650 mg Hydrocodone Bitart/Acetaminophen ([place] 325-5 Mg) 1 tab PO Q4H PRN PRN Reason: Pain (moderate 4-6) Albuterol/Ipratropium (Duoneb 3.0-0.5 Mg/3 Ml) 3 ml NEB Q4H PRN PRN Reason: Shortness Of Breath/wheezing Aspirin (Halfprin) 81 mg PO DAILY [facility] Last Admin: 05/03/17 08:26 Dose: 81 mg Bisacodyl (Dulcolax) 5 mg PO DAILY PRN PRN Reason: Constipation Dextrose/Water (Dextrose 50% In Water) 50 ml IVPUSH ASDIRECTED PRN PRN Reason: Hypoglycemia Docusate Sodium (Colace) 100 mg PO BID PRN PRN Reason: Constipation Enoxaparin Sodium (Lovenox) 40 mg SUBCUT DAILY [facility] Last Admin: 05/03/17 08:31 Dose: 40 mg Hydralazine HCl (Apresoline) 20 mg IVPUSH Q4H PRN PRN Reason: Hypertension Last Admin: 05/03/17 17:04 Dose: 20 mg Promethazine HCl 12.5 mg/ (Sodium Chloride) 50.5 mls @ 100 mls/hr IV Q6H PRN PRN Reason: Nausea/Vomiting Ceftriaxone Sodium 1 gm/ (Sodium Chloride) 100 mls @ 200 mls/hr IV Q24H [facility] Last Admin: 05/03/17 16:31 Dose: 200 mls/hr Insulin Aspart (Novolog) 0 unit SUBCUT QIDACANDBED [facility] PRN Reason: Protocol Last Admin: 05/03/17 20:59 Dose: Not Given Lorazepam (Ativan) 2 mg IVPUSH Q4H PRN PRN Reason: Seizures Lorazepam (Ativan) 1 mg IV Q6H PRN PRN Reason: Anxiety Losartan Potassium (Cozaar) 25 mg PO BID [facility] Last Admin: 05/03/17 21:42 Dose: Not Given Magnesium Sulfate (Pharmacy To Dose - Magnesium Replacement) 0 dose .XX ASDIRECTED PRN PRN Reason: RX TO WATCH MAG LEVELS Metoprolol Succinate (Toprol Xl) 50 mg PO DAILY [facility] Last Admin: 05/03/17 08:24 Dose: 50 mg Metoprolol Tartrate (Lopressor) 5 mg IVPUSH Q4H PRN PRN Reason: Tachycardia Ondansetron HCl (Zofran) 4 mg IV Q6H PRN PRN Reason: Nausea/Vomiting Polyethylene Glycol (Miralax) 17 gm PO DAILY PRN PRN Reason: Constipation Potassium Chloride (Pharmacy To Dose - Potassium Replacement) 0 dose .XX ASDIRECTED PRN PRN Reason: RX TO WATCH K LEVELS Saccharomyces Boulardii (Florastor) 250 mg PO DAILY [facility] Last Admin: 05/03/17 08:24 Dose: 250 mg Senna/Docusate Sodium (Senna Plus) 1 tab PO BID PRN PRN Reason: Constipation Temazepam (Restoril) 7.5 mg PO BEDTIME PRN PRN Reason: Sleep Discontinued Medications Acetaminophen (Tylenol) 975 mg PO NOW ONE Stop: 05/02/17 19:23 Last Admin: 05/02/17 19:35 Dose: 975 mg Furosemide (Lasix) 40 mg IVPUSH NOW ONE Stop: 05/02/17 21:05 Last Admin: 05/02/17 21:33 Dose: 40 mg Lactated Ringer's (Ringers, Lactated) 1,000 mls @ 500 mls/hr IV ASDIRECTED [facility] Last Admin: 05/02/17 19:35 Dose: 500 mls/hr Magnesium Sulfate 2 gm/ Premix 50 mls @ 25 mls/hr IV ONETIME ONE Stop: 05/02/17 22:56 Last Admin: 05/02/17 21:38 Dose: 25 mls/hr Levofloxacin/Dextrose 750 mg/ (Premix) 150 mls @ 100 mls/hr IV ONETIME ONE Stop: 05/02/17 22:35 Last Admin: 05/02/17 21:44 Dose: 100 mls/hr Sodium Chloride (Normal Saline) 1,000 mls @ 100 mls/hr IV ASDIRECTED [facility] Last Admin: 05/02/17 22:09 Dose: 100 mls/hr Azithromycin 500 mg/ Sodium (Chloride) 250 mls @ 250 mls/hr IV Q24H [facility] Last Admin: 05/03/17 06:37 Dose: 250 mls/hr Magnesium Oxide (Magnesium Oxide) 800 mg PO ONETIME ONE Stop: 05/03/17 09:01 Last Admin: 05/03/17 08:36 Dose: 800 mg Metoclopramide HCl (Reglan) 7.5 mg IVPUSH ONETIME ONE Stop: 05/02/17 19:27 Last Admin: 05/02/17 19:35 Dose: 7.5 mg Potassium Chloride (Klor-Con M20) 40 meq PO STAT ONE Stop: 05/03/17 00:31 Last Admin: 05/03/17 00:44 Dose: 40 meq Potassium Chloride (Klor-Con M20) 40 meq PO Q4H [facility] Stop: 05/03/17 08:31 Last Admin: 05/03/17 08:24 Dose: 40 meq Potassium Chloride (Klor-Con M20) 40 meq PO Q4H [facility] Stop: 05/03/17 13:01 - Exam Quality Assessment: No: Supplemental Oxygen General: Alert, Oriented, Cooperative, No Acute Distress HEENT: Pupils Equal, Pupils Reactive, EOMI, Mucous Membr. Moist/[place] Neck: Supple, Trachea Midline, No JVD Lungs: Clear to Auscultation, Normal Respiratory Effort Cardiovascular: Regular Rate, Regular Rhythm GI/Abdominal Exam: Normal Bowel Sounds, Soft, Non-Tender, No Organomegaly, No Distention, No Abnormal Bruit (Female) Exam: Deferred Back Exam: Normal Inspection, Decreased Range of Motion Extremities: Normal Inspection, Normal Range of Motion, Non-Tender, No Pedal Edema, Normal Capillary Refill Peripheral Pulses: 2+: Dorsalis Pedis (L), Dorsalis Pedis (R) Skin: Warm, Dry, Intact Neurological: No New Focal Deficit, Normal Gait Psy/Mental Status: Alert, Normal Affect, Normal Mood - Problem List Review Problem List Initiated/Reviewed/Updated: Yes - My Orders Last 24 Hours: My Active Orders 05/03/17 07:00 Insulin Aspart [NovoLOG] See Protocol SUBCUT QIDACANDBED 05/03/17 09:00 Aspirin [Halfprin] 81 mg PO DAILY Enoxaparin [Lovenox] 40 mg SUBCUT DAILY Losartan [Cozaar] 25 mg PO BID Metoprolol Succinate [Toprol XL] 50 mg PO DAILY Saccharomyces Boulardii [Florastor] 250 mg PO DAILY 05/03/17 14:00 cefTRIAXone [Rocephin] 1 gm Sodium Chloride 0.9% [Normal Saline] 100 ml IV Q24H 05/03/17 22:46 Blood Culture x2 Reflex Set [OM.PC] Stat 05/03/17 23:10 CULTURE BLOOD [BC] Routine 05/03/17 23:20 CULTURE BLOOD [BC] Routine 05/04/17 06:05 BASIC METABOLIC PANEL,BMP [CHEM] AM C-REACTIVE PROTEIN [CHEM] AM CBC WITH AUTO DIFF [HEME] AM MAGNESIUM [CHEM] AM 05/05/17 05:11 BASIC METABOLIC PANEL,BMP [CHEM] AM C-REACTIVE PROTEIN [CHEM] AM CBC WITH AUTO DIFF [HEME] AM MAGNESIUM [CHEM] AM 05/06/17 05:11 BASIC METABOLIC PANEL,BMP [CHEM] AM C-REACTIVE PROTEIN [CHEM] AM CBC WITH AUTO DIFF [HEME] AM MAGNESIUM [CHEM] AM 05/07/17 05:11 C-REACTIVE PROTEIN [CHEM] AM CBC WITH AUTO DIFF [HEME] AM MAGNESIUM [CHEM] AM - Plan Plan:: Assessment/Plan: Acute: Intermittent Fever/Febrile Illness - Likely 2/2 Below - WBC 13.16 --> 17.03; CRP 6.8 --> 12.4 - Will do complete body survey - D/c Rocephin and start Levaquin - Wonder is she has auto-immune or rheumatologic disease - Awaiting repeat blood culture Cystitis - UA pos for E. coli - Risk factors: DM2 - UA Cx sensitive Rocephin and Levaquin - Will restart IV Levaquin 500 mg daily and d/c Rocephin Hypomagnesemia, Improved - Mg 1.4--> 1.7 - 2/2 inadequate intake - Replete and monitor Hyperglycemia with DM2 - Medically non-compliant - She is refusing insulin either SA or LA - May consider Glucotrol 2.5 mg po BID first dose tonight Resolved: Viral Illness - CXR shows no obvious infiltrates - Blood Cultures, Monospot, Influenza screening and Respiratory Panel both negative - Continue Supportive Care Generalized Weakness - 2/2 on going illness and poor oral intake - PT/OT consult Poor Appetite - Offered stimulant; refused - Hopefully it'll get better Electrolytes Abnormality - K 3.2 and Mg 1.4 - Replete and monitor Chronic: HTN HLD SOB on Exertion OA/DJD Back Pain Fibromyalgia Plan: She is otherwise clinically stable Continue current treatment Routine AM Labs SW/CM for d/c planning Code Status: 1
[2017-05-04] MEDS: Ondansetron 4 MG/2 ML SDV IV PRN (07:51)
[2017-05-04] MEDS ORDERED: Levofloxacin/Dextrose 5%-Water 500 MG in Premix Bag 1 BAG IV SCH (08:00)
[2017-05-04] MEDS ORDERED: Magnesium Oxide 400 MG Tab PO ONE (08:30)
[2017-05-04] MEDS: Insulin Aspart 100 Units/ML 3 ML Pen SUBCUT SCH ×4 (09:48→21:27)
[2017-05-04] MEDS: Metoprolol Succinate 50 MG Tab.ER PO SCH (09:50)
[2017-05-04] MEDS: Aspirin 81 MG Tab.EC PO SCH (09:51)
[2017-05-04] MEDS: Losartan 25 MG Tab PO SCH ×2 (09:51→21:27)
[2017-05-04] MEDS: Enoxaparin 40 MG/0.4 ML Syringe SUBCUT SCH (09:51)
[2017-05-04] MEDS: Saccharomyces Boulardii (Probiotic) 250 MG Cap PO SCH (09:52)
[2017-05-04] MEDS: Acetaminophen 325 MG Tab PO PRN (14:04)
[2017-05-04] MEDS ORDERED: glipiZIDE 5 MG Tab.ER PO SCH (21:00)
[2017-05-04] MEDS ORDERED: glipiZIDE 2.5 MG Tab.ER PO SCH (21:00)
[2017-05-05] MEDS: Ondansetron 4 MG/2 ML SDV IV PRN (04:18)
--- NOTE | 2017-05-05 06:50 | PCM.SN ---
- Free Text/Narrative Note: Nursing alerted patient refusing glipizide and is "allergic" as it causes abd pain. DC'd order and will start low dose metformin 500mg BID- follow renal function, creatinine 1.1 yesterday.
[2017-05-05] MEDS: metFORMIN 500 MG Tab PO SCH ×2 (07:04→16:57)
[2017-05-05] MEDS ORDERED: Levofloxacin/Dextrose 5%-Water 250 MG in Premix Bag 1 BAG IV SCH (08:00)
--- NOTE | 2017-05-05 08:44 | PCM.PN ---
- General Info Date of Service: 05/05/17 Admission Dx/Problem (Free Text): Admission Diagnosis/Problem Admission Diagnosis/Problem Upper urinary tract infection Amy is seen this morning, doing well. Feels a little better this morning. Was nauseous before breakfast but resolved after eating. Feels weak. Slept fairly well. Back pain is improved today. No dysuria or other symptoms/complaints today Functional Status: Reports: Pain Controlled, Tolerating Diet, Ambulating, Urinating, Incentive Spirometry - Review of Systems General: Reports: No Symptoms, Weakness. Denies: Fever HEENT: Reports: No Symptoms Pulmonary: Reports: No Symptoms. Denies: Shortness of Breath, Cough Cardiovascular: Reports: No Symptoms. Denies: Chest Pain Gastrointestinal: Reports: No Symptoms, Nausea (improving slowly). Denies: Abdominal Pain, Vomiting Genitourinary: Reports: No Symptoms Musculoskeletal: Reports: No Symptoms. Denies: Back Pain (resolved or improved this morning) Neurological: Reports: No Symptoms - Patient Data Vitals - Most Recent: Last Vital Signs Temp 98.2 F 05/05/17 07:50 Pulse 69 05/05/17 07:50 Resp 20 05/05/17 07:50 BP 137/72 05/05/17 07:50 Pulse Ox 99 05/05/17 07:50 Weight - Most Recent: 236 lb 3 oz I&O - Last 24 Hours: Intake & Output 05/04/17 05/05/17 05/05/17 22:59 06:59 14:59 Intake Total 1140 800 Output Total 200 Balance 940 800 Lab Results Last 24 Hours: Laboratory Results - last 24 hr 05/04/17 05/04/17 05/04/17 Range/Units 10:42 17:23 20:55 WBC (3.98-10.04) K/mm3 RBC (3.98-5.22) M/mm3 Hgb (11.2-15.7) gm/L Hct (34.1-44.9) % MCV (79.4-94.8) fl MCH (25.6-32.2) pg MCHC (32.2-35.5) g/dl RDW Std Deviation (36.4-46.3) fL Plt Count (182-369) K/mm3 MPV (9.4-12.3) fl Neut % (Auto) (34.0-71.1) % Lymph % (Auto) (19.3-51.7) % [place] % (Auto) (4.7-12.5) % Eos % (Auto) (0.7-5.8) Baso % (Auto) (0.1-1.2) % Neut # (Auto) (1.56-6.13) K/mm3 Lymph # (Auto) (1.18-3.74) K/mm3 [place] # (Auto) (0.24-0.36) K/mm3 Eos # (Auto) (0.04-0.36) K/mm3 Baso # (Auto) (0.01-0.08) K/mm3 Sodium (136-145) mEq/L Potassium (3.5-5.1) mEq/L Chloride (98-107) mEq/L Carbon Dioxide (21-32) mEq/L Anion Gap (5-15) BUN (7-18) mg/dL Creatinine (0.55-1.02) mg/dL Est Cr Clr Drug Dosing mL/min Estimated GFR (MDRD) (>60) mL/min BUN/Creatinine Ratio (14-18) Glucose (83-115) mg/dL POC Glucose 278 H 212 H 288 H (83-110) mg/dL Calcium (8.5-10.1) mg/dL Magnesium (1.8-2.4) mg/dl C-Reactive Protein (<1.0) mg/dL 05/05/17 05/05/17 05/05/17 Range/Units 05:30 05:30 06:44 WBC 12.05 H (3.98-10.04) K/mm3 RBC 3.59 L (3.98-5.22) M/mm3 Hgb 10.0 L (11.2-15.7) gm/L Hct 31.7 L (34.1-44.9) % MCV 88.3 (79.4-94.8) fl MCH 27.9 (25.6-32.2) pg MCHC 31.5 L (32.2-35.5) g/dl RDW Std Deviation 42.7 (36.4-46.3) fL Plt Count 190 (182-369) K/mm3 MPV 11.1 (9.4-12.3) fl Neut % (Auto) 82.9 H (34.0-71.1) % Lymph % (Auto) 10.1 L (19.3-51.7) % [place] % (Auto) 6.0 (4.7-12.5) % Eos % (Auto) 0.5 L (0.7-5.8) Baso % (Auto) 0.2 (0.1-1.2) % Neut # (Auto) 9.99 H (1.56-6.13) K/mm3 Lymph # (Auto) 1.22 (1.18-3.74) K/mm3 [place] # (Auto) 0.72 H (0.24-0.36) K/mm3 Eos # (Auto) 0.06 (0.04-0.36) K/mm3 Baso # (Auto) 0.02 (0.01-0.08) K/mm3 Sodium 134 L (136-145) mEq/L Potassium 4.1 (3.5-5.1) mEq/L Chloride 98 (98-107) mEq/L Carbon Dioxide 27 (21-32) mEq/L Anion Gap 13.1 (5-15) BUN 23 H (7-18) mg/dL Creatinine 1.3 H (0.55-1.02) mg/dL Est Cr Clr Drug Dosing 34.68 mL/min Estimated GFR (MDRD) 40 (>60) mL/min BUN/Creatinine Ratio 17.7 (14-18) Glucose 258 H (83-115) mg/dL POC Glucose 233 H (83-110) mg/dL Calcium 8.0 L (8.5-10.1) mg/dL Magnesium 2.0 (1.8-2.4) mg/dl C-Reactive Protein 16.4 H* (<1.0) mg/dL [facility] Results Last 24 Hours: Microbiology 05/03/17 23:20 Aerobic Blood Culture - Preliminary Blood - Venous - Lab Draw NO GROWTH AFTER 1 DAY Anaerobic Blood Culture - Preliminary NO GROWTH AFTER 1 DAY 05/03/17 23:10 Aerobic Blood Culture - Preliminary Blood - Venous NO GROWTH AFTER 1 DAY Anaerobic Blood Culture - Preliminary NO GROWTH AFTER 1 DAY 05/03/17 05:10 Respiratory Virus Panel (PCR) (VINCENT) - Final Nasopharyngeal Swab Med Orders - Current: Current Medications Acetaminophen (Tylenol) 650 mg PO Q4H PRN PRN Reason: Pain (Mild 1-3)/fever Last Admin: 05/04/17 14:04 Dose: 650 mg Hydrocodone Bitart/Acetaminophen ([place] 325-5 Mg) 1 tab PO Q4H PRN PRN Reason: Pain (moderate 4-6) Albuterol/Ipratropium (Duoneb 3.0-0.5 Mg/3 Ml) 3 ml NEB Q4H PRN PRN Reason: Shortness Of Breath/wheezing Aspirin (Halfprin) 81 mg PO DAILY [facility] Last Admin: 05/04/17 09:51 Dose: 81 mg Bisacodyl (Dulcolax) 5 mg PO DAILY PRN PRN Reason: Constipation Dextrose/Water (Dextrose 50% In Water) 50 ml IVPUSH ASDIRECTED PRN PRN Reason: Hypoglycemia Docusate Sodium (Colace) 100 mg PO BID PRN PRN Reason: Constipation Enoxaparin Sodium (Lovenox) 40 mg SUBCUT DAILY [facility] Last Admin: 05/04/17 09:51 Dose: 40 mg Hydralazine HCl (Apresoline) 20 mg IVPUSH Q4H PRN PRN Reason: Hypertension Last Admin: 05/03/17 17:04 Dose: 20 mg Promethazine HCl 12.5 mg/ (Sodium Chloride) 50.5 mls @ 100 mls/hr IV Q6H PRN PRN Reason: Nausea/Vomiting Levofloxacin/Dextrose 250 mg/ (Premix) 50 mls @ 50 mls/hr IV Q24H [facility] Insulin Aspart (Novolog) 0 unit SUBCUT QIDACANDBED [facility] PRN Reason: Protocol Last Admin: 05/04/17 21:27 Dose: 4 units Lorazepam (Ativan) 2 mg IVPUSH Q4H PRN PRN Reason: Seizures Lorazepam (Ativan) 1 mg IV Q6H PRN PRN Reason: Anxiety Losartan Potassium (Cozaar) 25 mg PO BID [facility] Last Admin: 05/04/17 21:27 Dose: Not Given Magnesium Sulfate (Pharmacy To Dose - Magnesium Replacement) 0 dose .XX ASDIRECTED PRN PRN Reason: RX TO WATCH MAG LEVELS Metformin HCl (Glucophage) 500 mg PO BIDMEALS [facility] Last Admin: 05/05/17 07:04 Dose: Not Given Metoprolol Succinate (Toprol Xl) 50 mg PO DAILY [facility] Last Admin: 05/04/17 09:50 Dose: 50 mg Metoprolol Tartrate (Lopressor) 5 mg IVPUSH Q4H PRN PRN Reason: Tachycardia Ondansetron HCl (Zofran) 4 mg IV Q6H PRN PRN Reason: Nausea/Vomiting Last Admin: 05/05/17 04:18 Dose: 4 mg Polyethylene Glycol (Miralax) 17 gm PO DAILY PRN PRN Reason: Constipation Potassium Chloride (Pharmacy To Dose - Potassium Replacement) 0 dose .XX ASDIRECTED PRN PRN Reason: RX TO WATCH K LEVELS Saccharomyces Boulardii (Florastor) 250 mg PO DAILY [facility] Last Admin: 05/04/17 09:52 Dose: Not Given Senna/Docusate Sodium (Senna Plus) 1 tab PO BID PRN PRN Reason: Constipation Temazepam (Restoril) 7.5 mg PO BEDTIME PRN PRN Reason: Sleep Discontinued Medications Acetaminophen (Tylenol) 975 mg PO NOW ONE Stop: 05/02/17 19:23 Last Admin: 05/02/17 19:35 Dose: 975 mg Furosemide (Lasix) 40 mg IVPUSH NOW ONE Stop: 05/02/17 21:05 Last Admin: 05/02/17 21:33 Dose: 40 mg Glipizide (Glucotrol Xl) 5 mg PO BID [facility] Glipizide (Glucotrol Xl) 2.5 mg PO BID [facility] Last Admin: 05/04/17 21:27 Dose: Not Given Lactated Ringer's (Ringers, Lactated) 1,000 mls @ 500 mls/hr IV ASDIRECTED [facility] Last Admin: 05/02/17 19:35 Dose: 500 mls/hr Magnesium Sulfate 2 gm/ Premix 50 mls @ 25 mls/hr IV ONETIME ONE Stop: 05/02/17 22:56 Last Admin: 05/02/17 21:38 Dose: 25 mls/hr Levofloxacin/Dextrose 750 mg/ (Premix) 150 mls @ 100 mls/hr IV ONETIME ONE Stop: 05/02/17 22:35 Last Admin: 05/02/17 21:44 Dose: 100 mls/hr Sodium Chloride (Normal Saline) 1,000 mls @ 100 mls/hr IV ASDIRECTED [facility] Last Admin: 05/02/17 22:09 Dose: 100 mls/hr Azithromycin 500 mg/ Sodium (Chloride) 250 mls @ 250 mls/hr IV Q24H [facility] Last Admin: 05/03/17 06:37 Dose: 250 mls/hr Ceftriaxone Sodium 1 gm/ (Sodium Chloride) 100 mls @ 200 mls/hr IV Q24H [facility] Last Admin: 05/03/17 16:31 Dose: 200 mls/hr Levofloxacin/Dextrose 500 mg/ (Premix) 100 mls @ 100 mls/hr IV Q24H [facility] Stop: 05/04/17 12:00 Last Admin: 05/04/17 09:52 Dose: 100 mls/hr Magnesium Oxide (Magnesium Oxide) 800 mg PO ONETIME ONE Stop: 05/03/17 09:01 Last Admin: 05/03/17 08:36 Dose: 800 mg Magnesium Oxide (Magnesium Oxide) 800 mg PO ONETIME ONE Stop: 05/04/17 08:31 Last Admin: 05/04/17 09:51 Dose: 800 mg Metoclopramide HCl (Reglan) 7.5 mg IVPUSH ONETIME ONE Stop: 05/02/17 19:27 Last Admin: 05/02/17 19:35 Dose: 7.5 mg Potassium Chloride (Klor-Con M20) 40 meq PO STAT ONE Stop: 05/03/17 00:31 Last Admin: 05/03/17 00:44 Dose: 40 meq Potassium Chloride (Klor-Con M20) 40 meq PO Q4H [facility] Stop: 05/03/17 08:31 Last Admin: 05/03/17 08:24 Dose: 40 meq Potassium Chloride (Klor-Con M20) 40 meq PO Q4H [facility] Stop: 05/03/17 13:01 - Exam Quality Assessment: DVT Prophylaxis General: Alert, Oriented, Cooperative, No Acute Distress HEENT: Pupils Equal, EOMI, Mucous Membr. Moist/[place] Neck: Supple Lungs: Clear to Auscultation, Normal Respiratory Effort, Decreased Breath Sounds (bases) Cardiovascular: Regular Rate, Regular Rhythm GI/Abdominal Exam: Normal Bowel Sounds, Soft, Non-Tender (Female) Exam: Deferred Extremities: No Pedal Edema, Normal Capillary Refill Peripheral Pulses: 1+: Dorsalis Pedis (L), Dorsalis Pedis (R) Neurological: No New Focal Deficit Psy/Mental Status: Alert, Normal Affect, Normal Mood - Problem List & Annotations (1) Pyelonephritis SNOMED Code(s): 41687063 Code(s): N12 - TUBULO-INTERSTITIAL NEPHRITIS, NOT SPCF ACUTE OR CHRONIC Status: Acute Priority: High Current Visit: Yes (2) Hypomagnesemia SNOMED Code(s): 988672190 Code(s): E83.42 - HYPOMAGNESEMIA Status: Resolved Priority: High Current Visit: Yes (3) Hypokalemia SNOMED Code(s): 48728176 Code(s): E87.6 - HYPOKALEMIA Status: Resolved Priority: High Current Visit: Yes (4) CHF (congestive heart failure) SNOMED Code(s): 32814416 Code(s): I50.9 - HEART FAILURE, UNSPECIFIED Status: Acute Priority: Medium Current Visit: Yes Qualifiers: Heart failure type: diastolic Heart failure chronicity: acute on chronic Qualified Code(s): I50.33 - Acute on chronic diastolic (congestive) heart failure (5) Elevated troponin I level SNOMED Code(s): 449638322 Code(s): R74.8 - ABNORMAL LEVELS OF OTHER SERUM ENZYMES Status: Resolved Priority: High Current Visit: Yes (6) CKD (chronic kidney disease) stage 3, GFR 30-59 ml/min SNOMED Code(s): 903073662 Code(s): N18.3 - CHRONIC KIDNEY DISEASE, STAGE 3 (MODERATE) Status: Chronic Priority: Medium Current Visit: Yes - Problem List Review Problem List Initiated/Reviewed/Updated: Yes - My Orders Last 24 Hours: My Active Orders 05/05/17 07:00 metFORMIN [Glucophage] 500 mg PO BIDMEALS - Plan Plan:: Assessment/Plan: Acute: Intermittent Fever/Febrile Illness - Likely 2/2 Below - WBC 13.16 --> 17.03-->12K ; CRP 6.8 --> 12-->16.4 - Will do complete body survey - D/c Rocephin and start Levaquin - Wonder is she has auto-immune or rheumatologic disease - Awaiting repeat blood culture Cystitis--confirmed ecoli---AUTI - UA pos for E. coli - Risk factors: DM2, uncontrolled and noncompliant - UA Cx sensitive Rocephin and Levaquin - Will restart IV Levaquin 500 mg daily and d/c Rocephin - Florastor Hypomagnesemia, Improved/resolved - Mg 1.4--> 1.7-->2.0 - 2/2 inadequate intake - Replete and monitor Hyperglycemia with DM2 - Medically non-compliant - She is refusing insulin either SA or LA, also now refusing all orals offered. - May consider Glucotrol 2.5 mg po BID first dose tonight---patient refuses as states has caused GI upset in the past, ordered metformin 500mg PO BID for this morning--per nursing also refusing. Stating "I am fine I will deal with it when I get out". -A1C- 8.0 -CDE CKD--stage 3 -Stable, follow am labs Resolved: Viral Illness - CXR shows no obvious infiltrates - Blood Cultures, Monospot, Influenza screening and Respiratory Panel both negative - Continue Supportive Care Generalized Weakness - 2/2 on going illness and poor oral intake - PT/OT consult Poor Appetite - Offered stimulant; refused - Hopefully it'll get better Electrolytes Abnormality--resolved as above - K 3.2 and Mg 1.4 - Replete and monitor Chronic: HTN-stable cont home meds HLD- cont home meds SOB on Exertion OA/DJD Back Pain Fibromyalgia Plan: She is otherwise clinically stable Continue current treatment Routine AM Labs SW/CM for d/c planning---possibly DC tomorrow am, pending progress Code Status: 1 PCP is NORAH Ramirez with [facility]
[2017-05-05] MEDS: Insulin Aspart 100 Units/ML 3 ML Pen SUBCUT SCH ×4 (09:09→21:00)
[2017-05-05] MEDS: Saccharomyces Boulardii (Probiotic) 250 MG Cap PO SCH (09:14)
[2017-05-05] MEDS: Metoprolol Succinate 50 MG Tab.ER PO SCH (09:16)
[2017-05-05] MEDS: Losartan 25 MG Tab PO SCH ×2 (09:16→20:17)
[2017-05-05] MEDS: Aspirin 81 MG Tab.EC PO SCH (09:16)
[2017-05-05] MEDS: Enoxaparin 40 MG/0.4 ML Syringe SUBCUT SCH (09:17)
[2017-05-05] MEDS: Bismuth Subsalicylate 262 MG/15 ML Susp 236 ML Bottle PO PRN ×2 (12:20→20:18)
[2017-05-06] MEDS ORDERED: Insulin Glargine,Human Rec. Analog 100 Units/ML 3 ML Pen SUBCUT SCH
[2017-05-06] MEDS: metFORMIN 500 MG Tab PO SCH (06:26)
[2017-05-06] MEDS: Bismuth Subsalicylate 262 MG/15 ML Susp 236 ML Bottle PO PRN (06:30)
--- NOTE | 2017-05-06 07:12 | PCM.DCSUM1 ---
Discharge Summary - Hospital Course Free Text/Narrative:: This is a 72 yo elderly white female with past medical hx/o HTN, HLD, SOB on Exertion, OA/DJD, Fibromyalgia, Back Pain, and who comes in for further evaluation of ongoing illness that started 8 days ago. Patient started initially with fever and chills then subsequently developed abdominal discomfort associated with nausea and abdominal bloating. She is not able to keep any solid food. In fact, she is mostly taking in gatorade to stay hydrated. Patient carries a 10 year hx/o DM2 on insulin regimen with Tresiba. At this point, she also reports paroxysmal non-productive cough with diffuse myalgia, reduced appetite and generalized weakness. Her initial diagnostic workup shows a CBC remarkable for WBC of 15.81, neutrophils of 91%, lymphocytes of 6%, and ESR of 92. Her chemistry is remarkable for potassium of 3.2, anion gap of 17.2, glucose of 211, hemoglobin A1c of 8, magnesium of 1.4, troponin of 0.076, C-reactive protein of 5.19, proBNP of 1381, and albumin at 2.9. Her UA is suggestive of urinary tract infection. Her chest and abdominal x-rays both show no acute abnormal findings. Patient is being admitted for acute viral illness and urinary tract infection. She is full code. - Discharge Data Discharge Date: 05/06/17 (admit date 05/02/17) Discharge Disposition: Home, Self-Care 01 Condition: Good - Discharge Diagnosis/Problem(s) (1) Pyelonephritis SNOMED Code(s): 81190265 ICD Code: N12 - TUBULO-INTERSTITIAL NEPHRITIS, NOT SPCF ACUTE OR CHRONIC Status: Acute Priority: High Current Visit: Yes (2) Hypomagnesemia SNOMED Code(s): 582630345 ICD Code: E83.42 - HYPOMAGNESEMIA Status: Resolved Priority: High Current Visit: Yes (3) Hypokalemia SNOMED Code(s): 02583383 ICD Code: E87.6 - HYPOKALEMIA Status: Resolved Priority: High Current Visit: Yes (4) CHF (congestive heart failure) SNOMED Code(s): 93263954 ICD Code: I50.9 - HEART FAILURE, UNSPECIFIED Status: Acute Priority: Medium Current Visit: Yes Qualifiers: Heart failure type: diastolic Heart failure chronicity: acute on chronic Qualified Code(s): I50.33 - Acute on chronic diastolic (congestive) heart failure (5) Elevated troponin I level SNOMED Code(s): 296975300 ICD Code: R74.8 - ABNORMAL LEVELS OF OTHER SERUM ENZYMES Status: Resolved Priority: High Current Visit: Yes (6) CKD (chronic kidney disease) stage 3, GFR 30-59 ml/min SNOMED Code(s): 997226543 ICD Code: N18.3 - CHRONIC KIDNEY DISEASE, STAGE 3 (MODERATE) Status: Chronic Priority: Medium Current Visit: Yes - Patient Summary/Data Operative Procedure(s) Performed: None Complications: None Consults: Consultations 05/02/17 23:47 Consult to Spiritual Care [CONS] Routine OT Evaluation and Treatment [CONS] Routine PT Evaluation and Treatment [CONS] Routine Respiratory Care Assess and Treatment [CONS] Routine 05/05/17 08:45 Consult to Diabetic Nurse Specialist [CONS] Routine Labs Pending at D/C: None---follow kidney function for CKD Recommended Follow-up Testing/Procedures: Patient DC instructions: Weight yourself daily, same time/clothes and record. Bring record of weights with you to follow up visits--this is to monitor fluid status relating to heart failure. Follow up with PCP, Jewell Ace with [facility] within one week of discharge -Discuss Diabetes treatment/management -You may need low dose diuretic/water pill daily for swelling Appointment made with Endocrinology in [place] at [facility] ([facility]) phone [phone]. On September 09 at 3:00 PM CENTRAL Planned Operative Procedure(s) after DC: None Hospital Course: Assessment/Plan: Acute: Intermittent Fever/Febrile Illness----resolved - Likely 2/2 Below - WBC 13.16 --> 17.03-->12K--normalized ; CRP 6.8 --> 12-->16.4 - Will do complete body survey; - Wonder is she has auto-immune or rheumatologic disease - D/c Rocephin and start Levaquin - Awaiting repeat blood culture--negative Cystitis--confirmed ecoli---AUTI - UA pos for E. coli - Risk factors: DM2, uncontrolled and noncompliant - UA Cx sensitive Rocephin and Levaquin - Will restart IV Levaquin 500 mg daily and d/c Rocephin----Will DC on PO Levaquin 250mg x 7 more days for 10 total days of tx with abx - Florastor---floragen on DC x 30 days rx Hypomagnesemia, Improved/resolved - Mg 1.4--> 1.7-->2.0 - 2/2 inadequate intake - Replete and monitor Hyperglycemia with DM2 - Medically non-compliant - She is refusing insulin either SA or LA, also now refusing all orals offered- glipizide and metformin - May consider Glucotrol 2.5 mg po BID ---patient refuses as states has caused GI upset in the past, ordered metformin 500mg PO BID for this yesterday morning--per nursing also refusing. Stating "I am fine I will deal with it when I get out". -A1C- 8.0 -CDE CKD--stage 3 -Stable, follow am labs -Recommend f/up with PCP to follow after discharge Resolved: Viral Illness- resolved - CXR shows no obvious infiltrates - Blood Cultures, Monospot, Influenza screening and Respiratory Panel both negative - Continue Supportive Care Generalized Weakness - 2/2 on going illness and poor oral intake - PT/OT consult Poor Appetite- resolved - Offered stimulant; refused - Hopefully it'll get better Electrolytes Abnormality--resolved as above - K 3.2 and Mg 1.4 - Replete and monitor Chronic: HTN-stable cont home meds HLD- cont home meds SOB on Exertion OA/DJD Back Pain Fibromyalgia Plan: She is otherwise clinically stable Continue current treatment Routine AM Labs SW/CM for d/c planning---possibly DC tomorrow am, pending progress-------> DC home today, doing well. Code Status: 1 PCP is NORAH Ramirez with [facility] - Patient Instructions Diet: Heart Healthy Diet, Drink 8-10+ Glasses/Day, Diabetic Diet Activity: As Tolerated (recommend exercise/walking 150 minutes per week) Driving: May Drive Today Showering/Bathing: May Shower Notify Provider of: Fever, Increased Pain, Nausea and/or Vomiting - Discharge Plan Prescriptions/Med Rec: Bifidobacter. Bifidum/B.Longum [Florajen Bifidoblend] 460 mg PO DAILY #30 capsule Levofloxacin [Levaquin] 250 mg PO Q24H #7 tablet Home Medications: Home Meds Aspirin [Adult Low Dose Aspirin EC] 1 tab PO DAILY 05/02/17 [History] L.acidoph,Paracasei, B.lactis [Probiotic] 1 cap PO DAILY 05/02/17 [History] Losartan [Cozaar] 25 mg PO BID 05/02/17 [History] Metoprolol Succinate [Toprol Xl] 1 tab PO DAILY 05/02/17 [History] Bifidobacter. Bifidum/B.Longum [Florajen Bifidoblend] 460 mg PO DAILY #30 capsule 05/06/17 [Rx] Bismuth Subsalicylate [Pepto Bismol] 15 ml PO QID PRN bottle 05/06/17 [Rx] Levofloxacin [Levaquin] 250 mg PO Q24H #7 tablet 05/06/17 [Rx] Patient Handouts: Diabetes and Foot Care, Tips for Eating Away From Home If You Have Diabetes, Pyelonephritis, Adult, [id number], Diabetes Mellitus and Sick Day Management, Hyperglycemia, [id number], Chronic Kidney Disease, Adult , [id number] Forms: ED Department Discharge Referrals: Sona Ace, [facility] [employer] EXTENSION SPECIALIST [Primary Care Provider] - - Discharge Summary/Plan Comment DC Time >30 min.: Yes (45 min) - General Info Date of Service: 05/06/17 Admission Dx/Problem (Free Text: Admission Diagnosis/Problem Admission Diagnosis/Problem Upper urinary tract infection Doing better today, more energy, slept well. No n/v, back pain is resolved. Eating, drinking and voiding. Plans for DC home today. Functional Status: Reports: Pain Controlled, Tolerating Diet, Ambulating, Urinating, Incentive Spirometry. Denies: New Symptoms - Review of Systems General: Reports: No Symptoms, Weakness (improved). Denies: Fever HEENT: Reports: No Symptoms Pulmonary: Reports: No Symptoms. Denies: Shortness of Breath, Cough Cardiovascular: Reports: No Symptoms. Denies: Chest Pain, Palpitations, Dyspnea on Exertion Gastrointestinal: Reports: No Symptoms. Denies: Abdominal Pain, Nausea, Vomiting Genitourinary: Reports: No Symptoms. Denies: Dysuria, Burning, Hematuria, Flank Pain Musculoskeletal: Reports: No Symptoms. Denies: Back Pain (resolved) Neurological: Reports: No Symptoms - Patient Data Vitals - Most Recent: Last Vital Signs Temp 99.0 F 05/06/17 03:41 Pulse 84 05/06/17 03:41 Resp 24 H 05/06/17 03:41 BP 131/42 L 05/06/17 03:41 Pulse Ox 94 L 05/06/17 03:41 Weight - Most Recent: 235 lb 11.2 oz I&O - Last 24 hours: Intake & Output 05/05/17 05/06/17 05/06/17 22:59 06:59 14:59 Intake Total 1020 500 Output Total 450 Balance 1020 50 Lab Results - Last 24 hrs: Laboratory Results - last 24 hr 05/05/17 05/05/17 05/05/17 Range/Units 10:48 16:40 20:29 WBC (3.98-10.04) K/mm3 RBC (3.98-5.22) M/mm3 Hgb (11.2-15.7) gm/L Hct (34.1-44.9) % MCV (79.4-94.8) fl MCH (25.6-32.2) pg MCHC (32.2-35.5) g/dl RDW Std Deviation (36.4-46.3) fL Plt Count (182-369) K/mm3 MPV (9.4-12.3) fl Neut % (Auto) (34.0-71.1) % Lymph % (Auto) (19.3-51.7) % Floyd % (Auto) (4.7-12.5) % Eos % (Auto) (0.7-5.8) Baso % (Auto) (0.1-1.2) % Neut # (Auto) (1.56-6.13) K/mm3 Lymph # (Auto) (1.18-3.74) K/mm3 Floyd # (Auto) (0.24-0.36) K/mm3 Eos # (Auto) (0.04-0.36) K/mm3 Baso # (Auto) (0.01-0.08) K/mm3 Sodium (136-145) mEq/L Potassium (3.5-5.1) mEq/L Chloride (98-107) mEq/L Carbon Dioxide (21-32) mEq/L Anion Gap (5-15) BUN (7-18) mg/dL Creatinine (0.55-1.02) mg/dL Est Cr Clr Drug Dosing mL/min Estimated GFR (MDRD) (>60) mL/min BUN/Creatinine Ratio (14-18) Glucose (83-115) mg/dL POC Glucose 269 H 285 H 286 H (83-110) mg/dL Calcium (8.5-10.1) mg/dL Magnesium (1.8-2.4) mg/dl C-Reactive Protein (<1.0) mg/dL 05/06/17 05/06/17 05/06/17 Range/Units 05:42 05:42 06:25 WBC 8.07 (3.98-10.04) K/mm3 RBC 3.55 L (3.98-5.22) M/mm3 Hgb 10.1 L (11.2-15.7) gm/L Hct 31.7 L (34.1-44.9) % MCV 89.3 (79.4-94.8) fl MCH 28.5 (25.6-32.2) pg MCHC 31.9 L (32.2-35.5) g/dl RDW Std Deviation 42.6 (36.4-46.3) fL Plt Count 214 (182-369) K/mm3 MPV 11.1 (9.4-12.3) fl Neut % (Auto) 75.2 H (34.0-71.1) % Lymph % (Auto) 17.1 L (19.3-51.7) % Floyd % (Auto) 5.8 (4.7-12.5) % Eos % (Auto) 1.2 (0.7-5.8) Baso % (Auto) 0.2 (0.1-1.2) % Neut # (Auto) 6.06 (1.56-6.13) K/mm3 Lymph # (Auto) 1.38 (1.18-3.74) K/mm3 Floyd # (Auto) 0.47 H (0.24-0.36) K/mm3 Eos # (Auto) 0.10 (0.04-0.36) K/mm3 Baso # (Auto) 0.02 (0.01-0.08) K/mm3 Sodium 138 (136-145) mEq/L Potassium 4.1 (3.5-5.1) mEq/L Chloride 103 (98-107) mEq/L Carbon Dioxide 27 (21-32) mEq/L Anion Gap 12.1 (5-15) BUN 26 H (7-18) mg/dL Creatinine 1.3 H (0.55-1.02) mg/dL Est Cr Clr Drug Dosing 34.68 mL/min Estimated GFR (MDRD) 40 (>60) mL/min BUN/Creatinine Ratio 20.0 H (14-18) Glucose 218 H (83-115) mg/dL POC Glucose 223 H (83-110) mg/dL Calcium 8.2 L (8.5-10.1) mg/dL Magnesium 2.1 (1.8-2.4) mg/dl C-Reactive Protein 9.6 H* (<1.0) mg/dL BIENVENIDO Results - Last 24 hrs: Microbiology 05/03/17 23:20 Aerobic Blood Culture - Preliminary Blood - Venous - Lab Draw NO GROWTH AFTER 2 DAYS Anaerobic Blood Culture - Preliminary NO GROWTH AFTER 2 DAYS 05/03/17 23:10 Aerobic Blood Culture - Preliminary Blood - Venous NO GROWTH AFTER 2 DAYS Anaerobic Blood Culture - Preliminary NO GROWTH AFTER 2 DAYS Med Orders - Current: Current Medications Acetaminophen (Tylenol) 650 mg PO Q4H PRN PRN Reason: Pain (Mild 1-3)/fever Last Admin: 05/04/17 14:04 Dose: 650 mg Hydrocodone Bitart/Acetaminophen ([place] 325-5 Mg) 1 tab PO Q4H PRN PRN Reason: Pain (moderate 4-6) Albuterol/Ipratropium (Duoneb 3.0-0.5 Mg/3 Ml) 3 ml NEB Q4H PRN PRN Reason: Shortness Of Breath/wheezing Aspirin (Halfprin) 81 mg PO DAILY ANTONIA Last Admin: 05/05/17 09:16 Dose: 81 mg Bisacodyl (Dulcolax) 5 mg PO DAILY PRN PRN Reason: Constipation Bismuth Subsalicylate (Pepto Bismol) 15 ml PO QID PRN PRN Reason: upset stomach Last Admin: 05/06/17 06:30 Dose: 15 ml Dextrose/Water (Dextrose 50% In Water) 50 ml IVPUSH ASDIRECTED PRN PRN Reason: Hypoglycemia Docusate Sodium (Colace) 100 mg PO BID PRN PRN Reason: Constipation Enoxaparin Sodium (Lovenox) [address] [facility] Last Admin: 05/05/17 09:17 Dose: 40 mg Furosemide (Lasix) 20 mg PO ONETIME ONE Stop: 05/06/17 07:04 Hydralazine HCl (Apresoline) 20 mg IVPUSH Q4H PRN PRN Reason: Hypertension Last Admin: 05/03/17 17:04 Dose: 20 mg Promethazine HCl 12.5 mg/ (Sodium Chloride) 50.5 mls @ 100 mls/hr IV Q6H PRN PRN Reason: Nausea/Vomiting Insulin Aspart (Novolog) [address] [facility] PRN Reason: Protocol Last Admin: 05/05/17 21:00 Dose: 6 units Levofloxacin (Levaquin) [address] [facility] Lorazepam (Ativan) 2 mg IVPUSH Q4H PRN PRN Reason: Seizures Lorazepam (Ativan) 1 mg IV Q6H PRN PRN Reason: Anxiety Losartan Potassium (Cozaar) [address] [facility] Last Admin: 05/05/17 20:17 Dose: 25 mg Magnesium Sulfate (Pharmacy To Dose - Magnesium Replacement) 0 dose .XX ASDIRECTED PRN PRN Reason: RX TO WATCH MAG LEVELS Metformin HCl (Glucophage) [address] [facility] Last Admin: 05/06/17 06:26 Dose: Not Given Metoprolol Succinate (Toprol Xl) [address] [facility] Last Admin: 05/05/17 09:16 Dose: 50 mg Metoprolol Tartrate (Lopressor) 5 mg IVPUSH Q4H PRN PRN Reason: Tachycardia Ondansetron HCl (Zofran) 4 mg IV Q6H PRN PRN Reason: Nausea/Vomiting Last Admin: 05/05/17 04:18 Dose: 4 mg Polyethylene Glycol (Miralax) 17 gm PO DAILY PRN PRN Reason: Constipation Potassium Chloride (Pharmacy To Dose - Potassium Replacement) 0 dose .XX ASDIRECTED PRN PRN Reason: RX TO WATCH K LEVELS Saccharomyces Boulardii (Florastor) [address] [facility] Last Admin: 05/05/17 09:14 Dose: Not Given Senna/Docusate Sodium (Senna Plus) 1 tab PO BID PRN PRN Reason: Constipation Temazepam (Restoril) 7.5 mg PO BEDTIME PRN PRN Reason: Sleep Discontinued Medications Acetaminophen (Tylenol) 975 mg PO NOW ONE Stop: 05/02/17 19:23 Last Admin: 05/02/17 19:35 Dose: 975 mg Furosemide (Lasix) 40 mg IVPUSH NOW ONE Stop: 05/02/17 21:05 Last Admin: 05/02/17 21:33 Dose: 40 mg Glipizide (Glucotrol Xl) [address] [facility] Glipizide (Glucotrol Xl) 2.[address] [facility] Last Admin: 05/04/17 21:27 Dose: Not Given Lactated Ringer's (Ringers, Lactated) 1,000 mls @ 500 mls/hr IV ASDIRECTED [facility] Last Admin: 05/02/17 19:35 Dose: 500 mls/hr Magnesium Sulfate 2 gm/ Premix 50 mls @ 25 mls/hr IV ONETIME ONE Stop: 05/02/17 22:56 Last Admin: 05/02/17 21:38 Dose: 25 mls/hr Levofloxacin/Dextrose 750 mg/ (Premix) 150 mls @ 100 mls/hr IV ONETIME ONE Stop: 05/02/17 22:35 Last Admin: 05/02/17 21:44 Dose: 100 mls/hr Sodium Chloride (Normal Saline) 1,000 mls @ 100 mls/hr IV ASDIRECTED [facility] Last Admin: 05/02/17 22:09 Dose: 100 mls/hr Azithromycin 500 mg/ Sodium (Chloride) 250 mls @ 250 mls/hr IV Q24H [facility] Last Admin: 05/03/17 06:37 Dose: 250 mls/hr Ceftriaxone Sodium 1 gm/ (Sodium Chloride) 100 mls @ 200 mls/hr IV Q24H [facility] Last Admin: 05/03/17 16:31 Dose: 200 mls/hr Levofloxacin/Dextrose 500 mg/ (Premix) 100 mls @ 100 mls/hr IV Q24H [facility] Stop: 05/04/17 12:00 Last Admin: 05/04/17 09:52 Dose: 100 mls/hr Levofloxacin/Dextrose 250 mg/ (Premix) 50 mls @ 50 mls/hr IV Q24H [facility] Last Admin: 05/05/17 09:13 Dose: 50 mls/hr Magnesium Oxide (Magnesium Oxide) 800 mg PO ONETIME ONE Stop: 05/03/17 09:01 Last Admin: 05/03/17 08:36 Dose: 800 mg Magnesium Oxide (Magnesium Oxide) 800 mg PO ONETIME ONE Stop: 05/04/17 08:31 Last Admin: 05/04/17 09:51 Dose: 800 mg Metoclopramide HCl (Reglan) 7.5 mg IVPUSH ONETIME ONE Stop: 05/02/17 19:27 Last Admin: 05/02/17 19:35 Dose: 7.5 mg Potassium Chloride (Klor-Con M20) 40 meq PO STAT ONE Stop: 05/03/17 00:31 Last Admin: 05/03/17 00:44 Dose: 40 meq Potassium Chloride (Klor-Con M20) 40 meq PO Q4H ANTONIA Stop: 05/03/17 08:31 Last Admin: 05/03/17 08:24 Dose: 40 meq Potassium Chloride (Klor-Con M20) [address] [facility] Stop: 05/03/17 13:01 - Exam Quality Assessment: Reports: DVT Prophylaxis General: Reports: Alert, Oriented, Cooperative, No Acute Distress HEENT: Reports: Pupils Equal, EOMI, Mucous Membr. Moist/[place]ck: Reports: Supple Lungs: Reports: Clear to Auscultation, Normal Respiratory Effort Cardiovascular: Reports: Regular Rate, Regular Rhythm, Murmurs (grade 1-2 systolic) GI/Abdominal Exam: Normal Bowel Sounds, Soft, Non-Tender (Female) Exam: Deferred Rectal (Female) Exam: Deferred Back Exam: Reports: Normal Inspection Extremities: Normal Capillary Refill, Pedal Edema (trace to 1+ bilat LE/ankles) Neurological: Reports: No New Focal Deficit Psy/Mental Status: Reports: Alert, Normal Affect, Normal Mood *Q Meaningful Use (DIS) - VTE *Q VTE Criteria *Q: - Stroke *Q Stroke Criteria *Q: - AMI *Q AMI Criteria *Q:
[2017-05-06] MEDS ORDERED: Furosemide 20 MG Tab PO ONE (07:15)
[2017-05-06] MEDS ORDERED: Levofloxacin 250 MG Tab PO SCH (08:00)
[2017-05-06] MEDS: Insulin Aspart 100 Units/ML 3 ML Pen SUBCUT SCH ×2 (08:06→12:44)
[2017-05-06] MEDS: Losartan 25 MG Tab PO SCH (08:09)
[2017-05-06] MEDS: Metoprolol Succinate 50 MG Tab.ER PO SCH (08:09)
[2017-05-06] MEDS: Saccharomyces Boulardii (Probiotic) 250 MG Cap PO SCH (08:10)
[2017-05-06] MEDS: Aspirin 81 MG Tab.EC PO SCH (08:10)
[2017-05-06] MEDS: Enoxaparin 40 MG/0.4 ML Syringe SUBCUT SCH (08:10)
[2017-05-06] MEDS ORDERED: Loperamide 2 MG Cap PO PRN (08:31)
[2017-05-06 12:49] VITALS: BP 126/85
== END 2017-05-06 12:55 | disposition home or self-care (01) | DRG 689 ==
LOC: JD.ED 18:42 → JD.MS 22:03
PROVIDERS: ADMIT Internal Medicine; ATTEND Internal Medicine
DX: N12 Tubulo-interstitial nephritis, not specified as acute or chronic (principal); I50.33 Acute on chronic diastolic (congestive) heart failure; I13.0 Hypertensive heart and chronic kidney disease with heart failure and stage 1 through stage 4 chronic kidney disease, or unspecified chronic kidney disease; B34.9 Viral infection, unspecified; I11.0 Hypertensive heart disease with heart failure; E83.42 Hypomagnesemia; E78.00 Pure hypercholesterolemia, unspecified; E11.9 Type 2 diabetes mellitus without complications; E87.6 Hypokalemia; R74.8 Abnormal levels of other serum enzymes; E11.22 Type 2 diabetes mellitus with diabetic chronic kidney disease; N18.3 Chronic kidney disease, stage 3 (moderate); M54.9 Dorsalgia, unspecified; B96.20 Unspecified Escherichia coli [E. coli] as the cause of diseases classified elsewhere; E11.65 Type 2 diabetes mellitus with hyperglycemia; R53.1 Weakness; E78.5 Hyperlipidemia, unspecified; M19.90 Unspecified osteoarthritis, unspecified site; G89.29 Other chronic pain; M79.7 Fibromyalgia; I35.0 Nonrheumatic aortic (valve) stenosis; Z88.8 Allergy status to other drugs, medicaments and biological substances; Z79.82 Long term (current) use of aspirin; Z79.4 Long term (current) use of insulin; Z79.899 Other long term (current) drug therapy
CPT/HCPCS: 36415; 71045; 74018; 80053; 81001; 82009; 82553; 82962; 83036; 83605; 83690; 83735; 83880; 84484; 85025; 85610; 85652; 86140; 86308; 87040 ×2; 87086; 87088; 87186; 87804 ×2; 93005; 96361; 96365; 96375; 99285; A9270; J1940; J1956; J2765; J7120; 80048; 87486; 87581; 87633; 87798; 93010; 96368; 97161-GP; 97165-GO; 99222; 99231; 99239; J0360; J0456; J0696; J1650; J1815-GY; J2405; J3475; J7030; J7040; J7050

== ENCOUNTER 2020-05-03 16:03 | Emergency (ER) | payer MEDICARE, BC ==
[2020-05-03 16:23] VITALS: BP 155/103; PULSE 130
[2020-05-03] MEDS ORDERED: Diltiazem 50 MG/10 ML SDV IVPUSH ONE ×2 (17:17→19:53)
--- NOTE | 2020-05-03 17:21 | EDM.PDOC ---
ED HPI GENERAL MEDICAL PROBLEM - General Chief Complaint: Cardiovascular Problem Stated Complaint: SOB Time Seen by Provider: 05/03/20 16:54 Source of Information: Reports: Patient, RN Notes Reviewed - History of Present Illness INITIAL COMMENTS - FREE TEXT/NARRATIVE: 75 yr old female has been sent over from [facility] with DAGMAR Jauregui. She states she has been having heart palpitations off and on ever since having covid back in January 3 months ago. She has had worsening dyspne at rest and especially with exertion this past several weeks and especially this past week. Her lasix has been increased from 20 mg daily to 40 mg daily. Her breathing has not improved and "I have not lost weight". She states her chest does feel tight today. She has had decreased appetite. Has had orthopnea, has been sleeping sitting in a chair for this past week. She is type 2 diabetic, takes insulin. when questioned specifically she admits to not taking her lasix yesterday or today for reasons that are not clear. - Related Data Allergies Allergy/AdvReac Type Severity Reaction Status Date / Time glipizide AdvReac Abdominal Verified 05/03/20 16:18 Pain linagliptin [From Tradjenta] AdvReac Abdominal Verified 05/03/20 16:18 Pain morphine AdvReac Hallucinati Verified 05/03/20 16:18 ons oxycodone AdvReac Hallucinati Verified 05/03/20 16:18 ons yeast, dried [yeast] AdvReac Cough Verified 05/03/20 16:18 Home Meds: Home Meds Losartan [Cozaar] 50 mg PO DAILY 05/02/17 [History] Metoprolol Succinate [Toprol Xl] 50 mg PO DAILY 05/02/17 [History] Aspirin [Ecotrin EC] 81 mg PO DAILY 09/07/18 [History] Cyclobenzaprine [Flexeril] 5 mg PO TID PRN #20 tab 09/07/18 [Rx] Insulin Aspart [NovoLOG] 8 unit SQ BID 09/07/18 [History] Insulin Glargine,Hum.Rec.Anlog [Lantus Solostar] 31 unit SQ PCBREAKFAST 09/07/18 [History] Lactobacillus 3/Fos/Pantethine [Probiotic & Acidophilus] 2 cap PO DAILY 09/07/18 [History] Naproxen Sodium 220 mg PO ASDIRECTED PRN 09/07/18 [History] traMADol [Ultram] 50 mg PO Q6H PRN #20 tab 09/07/18 [Rx] Past Medical History HEENT History: Reports: Cataract, Impaired Vision, Other (See Below) Other HEENT History: macular (rare) eye disease, wears eyeglasses. 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 - Infectious Disease History Infectious Disease History: Reports: Chicken Pox, Measles, Novel Coronavirus Other Infectious Disease History: 01/2020 - Past Surgical History HEENT Surgical History: Reports: Cataract Surgery Cardiovascular Surgical History: Reports: Valve Replacement GI Surgical History: Reports: Cholecystectomy Musculoskeletal Surgical History: Reports: Knee Replacement, Shoulder Surgery Oncologic Surgical History: Reports: None Other Oncologic Surgeries/Procedures: MOHS surgery to nose with skin grafting. Social & Family History - Family History Family Medical History: No Pertinent Family History - Tobacco Use Tobacco Use Status *Q: Never Tobacco User - Caffeine Use Caffeine Use: Reports: Coffee - Recreational Drug Use Recreational Drug Use: No - Living Situation & Occupation Living situation: Reports: Single Occupation: Retired ED ROS GENERAL - Review of Systems Review Of Systems: See Below Constitutional: Denies: Fever, Chills, Diaphoresis HEENT: Reports: No Symptoms Respiratory: Reports: Shortness of Breath, Cough Cardiovascular: Reports: Chest Pain (mild chest tightness) GI/Abdominal: Reports: Decreased Appetite, Nausea. Denies: Abdominal Pain, Vomiting Musculoskeletal: Denies: Shoulder Pain, Arm Pain Skin: Reports: No Symptoms Neurological: Reports: Dizziness ED EXAM, GENERAL - Physical Exam Exam: See Below General Appearance: Alert, No Apparent Distress Throat/Mouth: Normal Inspection Head: Atraumatic Neck: Supple Respiratory/Chest: Respiratory Distress (mild tachypnea). No: Rales, Rhonchi, Wheezing Cardiovascular: Irregularly Irregular GI/Abdominal: Soft, Non-Tender Extremities: Pedal Edema (plus 1 to plus 2 bilat). No: Leg Pain, Increased Warmth, Redness Neurological: Alert, Oriented, No Motor/Sensory Deficits Skin Exam: Warm, Dry, Normal Color #1 Interpretation EKG Date: 05/03/20 Rhythm: A-Fib Rate (Beats/Min): 123 [place]: Normal P-Wave: Absent ST-T: Normal Course - Vital Signs Last Recorded V/S: Last Vital Signs Temp 97.8 F 05/03/20 16:19 Pulse 130 H 05/03/20 16:19 Resp 22 H 05/03/20 16:19 BP 155/103 H 05/03/20 16:19 Pulse Ox 93 L 05/03/20 16:19 - Orders/Labs/Meds Orders: Active Orders 24 hr Category Date Time Status Chest 1V Frontal [CR] Stat Exams 05/03/20 17:08 Taken Labs: Laboratory Tests 05/03/20 05/03/20 05/03/20 Range/Units 17:01 17:01 17:01 WBC 8.48 (3.98-10.04) K/mm3 RBC 4.41 (3.98-5.22) M/mm3 Hgb 12.2 D (11.2-15.7) gm/dl Hct 40.2 (34.1-44.9) % MCV 91.2 (79.4-94.8) fl MCH 27.7 (25.6-32.2) pg MCHC 30.3 L (32.2-35.5) g/dl RDW Std Deviation 45.8 (36.4-46.3) fL Plt Count 225 (182-369) K/mm3 MPV 10.5 (9.4-12.3) fl Neut % (Auto) 76.9 H (34.0-71.1) % Lymph % (Auto) 14.6 L (19.3-51.7) % [place] % (Auto) 7.1 (4.7-12.5) % Eos % (Auto) 1.1 (0.7-5.8) Baso % (Auto) 0.2 (0.1-1.2) % Neut # (Auto) 6.52 H (1.56-6.13) K/mm3 Lymph # (Auto) 1.24 (1.18-3.74) K/mm3 [place] # (Auto) 0.60 H (0.24-0.36) K/mm3 Eos # (Auto) 0.09 (0.04-0.36) K/mm3 Baso # (Auto) 0.02 (0.01-0.08) K/mm3 Sodium 144 (136-145) mEq/L Potassium 3.8 (3.5-5.1) mEq/L Chloride 106 (98-107) mEq/L Carbon Dioxide 28 (21-32) mEq/L Anion Gap 13.8 (5-15) BUN 24 H (7-18) mg/dL Creatinine 1.0 (0.55-1.02) mg/dL Est Cr Clr Drug Dosing TNP Estimated GFR (MDRD) 54 (>60) mL/min BUN/Creatinine Ratio 24.0 H (14-18) Glucose 169 H (83-115) mg/dL Calcium 8.9 (8.5-10.1) mg/dL Total Bilirubin 0.4 (0.2-1.0) mg/dL AST 22 (15-37) U/L ALT 29 (14-59) U/L Alkaline Phosphatase 74 (46-116) U/L Troponin I 1.063 H* (0.00-0.056) ng/mL NT-Pro-B Natriuret Pep 3361 H (0-450) pg/mL Total Protein 7.1 (6.4-8.2) g/dl Albumin 3.2 L (3.4-5.0) g/dl Globulin 3.9 gm/dL Albumin/Globulin Ratio 0.8 L (1-2) 05/03/20 Range/Units 19:41 WBC (3.98-10.04) K/mm3 RBC (3.98-5.22) M/mm3 Hgb (11.2-15.7) gm/dl Hct (34.1-44.9) % MCV (79.4-94.8) fl MCH (25.6-32.2) pg MCHC (32.2-35.5) g/dl RDW Std Deviation (36.4-46.3) fL Plt Count (182-369) K/mm3 MPV (9.4-12.3) fl Neut % (Auto) (34.0-71.1) % Lymph % (Auto) (19.3-51.7) % [place] % (Auto) (4.7-12.5) % Eos % (Auto) (0.7-5.8) Baso % (Auto) (0.1-1.2) % Neut # (Auto) (1.56-6.13) K/mm3 Lymph # (Auto) (1.18-3.74) K/mm3 [place] # (Auto) (0.24-0.36) K/mm3 Eos # (Auto) (0.04-0.36) K/mm3 Baso # (Auto) (0.01-0.08) K/mm3 Sodium (136-145) mEq/L Potassium (3.5-5.1) mEq/L Chloride (98-107) mEq/L Carbon Dioxide (21-32) mEq/L Anion Gap (5-15) BUN (7-18) mg/dL Creatinine (0.55-1.02) mg/dL Est Cr Clr Drug Dosing Estimated GFR (MDRD) (>60) mL/min BUN/Creatinine Ratio (14-18) Glucose (83-115) mg/dL Calcium (8.5-10.1) mg/dL Total Bilirubin (0.2-1.0) mg/dL AST (15-37) U/L ALT (14-59) U/L Alkaline Phosphatase (46-116) U/L Troponin I 1.265 H* (0.00-0.056) ng/mL NT-Pro-B Natriuret Pep (0-450) pg/mL Total Protein (6.4-8.2) g/dl Albumin (3.4-5.0) g/dl Globulin gm/dL Albumin/Globulin Ratio (1-2) Meds: Medications Discontinued Medications Generic Name Dose Route Start Last Admin Trade Name Freq PRN Reason Stop Dose Admin Diltiazem HCl 20 mg 05/03/20 17:17 05/03/20 17:28 Cardizem IVPUSH 05/03/20 17:18 20 mg ONETIME ONE Administration Diltiazem HCl 10 mg 05/03/20 19:53 05/03/20 20:25 Cardizem IVPUSH 05/03/20 19:54 10 mg ONETIME ONE Administration Furosemide 40 mg 05/03/20 18:43 05/03/20 18:56 Lasix IVPUSH 05/03/20 18:44 40 mg NOW ONE Administration Heparin Sodium (Porcine) 4,000 units 05/03/20 19:19 05/03/20 19:33 Heparin Sodium IVPUSH 05/03/20 19:20 4,000 units .BOLUS ONE Administration Heparin Sodium/Dextrose 25,000 units in 500 mls @ 27.422 mls/hr 05/03/20 19:30 05/03/20 19:35 Heparin 25,000 Units In D5w 500 Ml IV 12 units/kg/hr TITRATE ANTONIA 27.422 mls/hr Administration Protocol 12 UNITS/KG/HR - Re-Assessments/Exams Free Text/Narrative Re-Assessment/Exam: 05/03/20 19:40. Rate came down nicely after 1 dose of diltiazem 20 mg IV, has been running in the 80's and low 90's. Have given lasix 40 mg IV and she has been voiding. Her chest feels better. Repeat 3 hr trop is pending. I visited with our Hospitalist. He is concerned about her elevated trop of 1.063. Her CXR shows cardiomegally, mild pul. congestion. I have visited with [employer] installation coordinator, Dr Sheth, [facility]. Because we are not able to get an echocardiogram this weekend to guide therapy she does agree it is appropriate to transfer to [facility]. Will send by ground ambulance. Dr Lee, Hospitalist accepting Physician. Her rate did start going up to low 100's at time of transfer so did order another [address] Geiger also did recomend starting heparin so did do that. 05/04/20 12:09 Her 2nd trop did come back a bit further elevated at 1.265 further supporting decision to transfer to higher level of care with ability to get an emergency echo. and Cardiology evaluation and guidance as needed. Departure - Departure Time of Disposition: 19:46 Disposition: DC/Tfer to [facility] 02 Reason for Transfer *Q: Other Condition: Serious Clinical Impression: Atrial fibrillation with RVR, Elevated troponin CHF (congestive heart failure) Qualifiers: Heart failure type: diastolic Heart failure chronicity: acute on chronic Qualified Code(s): I50.33 - Acute on chronic diastolic (congestive) heart failure Referrals: Josefina Obrien MD [Primary Care Provider] - Forms: ED Department Discharge Sepsis Event Note (ED) - Evaluation Sepsis Screening Result: No Definite Risk - My Orders Last 24 Hours: My Active Orders 05/03/20 17:08 Chest 1V Frontal [CR] Stat - Assessment/Plan Last 24 Hours: My Active Orders 05/03/20 17:08 Chest 1V Frontal [CR] Stat
[2020-05-03] MEDS ORDERED: Furosemide 40 MG/4 ML VIAL IVPUSH ONE (18:43)
[2020-05-03] MEDS ORDERED: Heparin Sodium 5,000 Units/ML Vial IVPUSH ONE (19:19)
[2020-05-03] MEDS ORDERED: Heparin Sodium/D5W 25,000 UNITS/500 ML BAG IV SCH (19:30)
--- NOTE | 2020-05-05 09:02 | CR ---
Chest: Portable view of the chest was obtained. Comparison: Prior chest x-ray of 05/02/17. Heart is enlarged. Upper mediastinum is within normal limits. Previous sternotomy is noted. Lungs show no acute parenchymal change. No acute osseous finding is appreciated. Impression: 1. Stable cardiomegaly with prior sternotomy. 2. Nothing acute is identified on portable chest x-ray. Diagnostic code #2
== END 2020-05-03 20:28 ==
LOC: JD.ED 16:03
DX: I48.91 Unspecified atrial fibrillation (principal); I11.0 Hypertensive heart disease with heart failure; I50.33 Acute on chronic diastolic (congestive) heart failure; R79.89 Other specified abnormal findings of blood chemistry; M19.90 Unspecified osteoarthritis, unspecified site; E11.9 Type 2 diabetes mellitus without complications; Z88.8 Allergy status to other drugs, medicaments and biological substances; Z88.5 Allergy status to narcotic agent; Z91.048 Other nonmedicinal substance allergy status; Z79.82 Long term (current) use of aspirin; Z79.4 Long term (current) use of insulin
CPT/HCPCS: 36415; 71045; 80053; 83880; 84484; 85025; 93005; 96365; 96375; 96376; 99285; J1644; J1940; J3490; 93010; 99284

== ENCOUNTER 2022-05-15 09:43 | Emergency (ER) | payer MEDICARE, BC ==
[2022-05-15] MEDS ORDERED: Sodium Chloride 0.9% 1,000 ML IV ONE (10:06)
[2022-05-15 10:52] LABS: ESTIMATED GFR 58 mL/min (>60)
[2022-05-15 11:30] VITALS: BP 143/70; PULSE 76
[2022-05-15] MEDS ORDERED: Iopamidol 612 MG/ML 100 ML Bottle IVPUSH ONE (11:42)
[2022-05-15] MEDS ORDERED: Sodium Chloride 0.9% 10 ML Syringe FLUSH PRN (11:42)
[2022-05-15 13:20] LABS: CORONAVIRUS COVID-19 NAA POSITIVE (NEGATIVE)
[2022-05-15] MEDS ORDERED: Ondansetron 4 MG/2 ML SDV IVPUSH ONE (13:41)
[2022-05-15] MEDS ORDERED: cefTRIAXone 2 GM in Sodium Chloride 0.9% 100 ML IV ONE (15:28)
[2022-05-15] MEDS ORDERED: Cefdinir 300 MG Cap PO ONE (15:46)
== END 2022-05-15 16:00 | disposition home or self-care (01) ==
LOC: JD.ED 09:43
DX: U07.1 COVID-19 (principal); N39.0 Urinary tract infection, site not specified; R11.0 Nausea; E78.00 Pure hypercholesterolemia, unspecified; I10 Essential (primary) hypertension; E11.9 Type 2 diabetes mellitus without complications; Z86.16 Personal history of COVID-19; Z79.82 Long term (current) use of aspirin; Z79.4 Long term (current) use of insulin; Z88.5 Allergy status to narcotic agent; Z88.8 Allergy status to other drugs, medicaments and biological substances; Z91.018 Allergy to other foods
CPT/HCPCS: 0240U; 36415; 71045; 74177; 80053; 81001; 83605; 83690; 84484; 85025; 87086; 93005; 96361; 96374; 99284; A9270; J2405; J3490; J7030; Q9967; 93010

== ENCOUNTER 2022-05-28 08:42 | Inpatient (IN) | payer MEDICARE, BC ==
[2022-05-28] MEDS ORDERED: Furosemide 40 MG/4 ML VIAL IVPUSH ONE (09:36)
[2022-05-28] MEDS ORDERED: Potassium Chloride 20 MEQ Tab.ER PO ONE (10:28)
[2022-05-28] MEDS ORDERED: Iopamidol 755 Mg/ML 100 ML Bottle IVPUSH ONE (11:32)
[2022-05-28] MEDS ORDERED: Sodium Chloride 0.9% 10 ML Syringe FLUSH PRN ×2 (11:32→14:29)
[2022-05-28] MEDS ORDERED: Sodium Chloride 0.9% 100 ML IV SCH (11:45)
[2022-05-28] MEDS: Insulin Lispro 100 Unit/ML 3 ML KwikPen SUBCUT SCH ×2 (17:30→20:15)
[2022-05-28] MEDS ORDERED: Furosemide 40 MG/4 ML VIAL IVPUSH SCH (21:00)
[2022-05-29] MEDS: Furosemide 40 MG/4 ML VIAL IVPUSH SCH ×2 (05:27→13:11)
[2022-05-29] MEDS: Insulin Lispro 100 Unit/ML 3 ML KwikPen SUBCUT SCH ×4 (07:52→22:06)
[2022-05-29] MEDS ORDERED: Potassium Chloride 20 MEQ Tab.ER PO ONE (08:45)
[2022-05-29] MEDS: Aspirin 81 MG Tab.EC PO SCH (09:12)
[2022-05-29] MEDS: Metoprolol Succinate 50 MG Tab.ER PO SCH ×2 (09:13→22:07)
[2022-05-29] MEDS: guaiFENesin 600 MG Tab.ER PO SCH ×2 (13:11→22:06)
[2022-05-30] MEDS ORDERED: predniSONE 20 MG Tab PO SCH (07:00)
[2022-05-30] MEDS: Furosemide 40 MG/4 ML VIAL IVPUSH SCH ×2 (07:00→16:01)
[2022-05-30] MEDS: Insulin Lispro 100 Unit/ML 3 ML KwikPen SUBCUT SCH ×4 (07:59→22:13)
[2022-05-30] MEDS: predniSONE 20 MG Tab PO SCH (08:00)
[2022-05-30] MEDS: guaiFENesin 600 MG Tab.ER PO SCH ×2 (08:00→22:14)
[2022-05-30] MEDS: Aspirin 81 MG Tab.EC PO SCH (08:00)
[2022-05-30] MEDS: Metoprolol Succinate 50 MG Tab.ER PO SCH ×2 (08:01→22:14)
[2022-05-30] MEDS: Albuterol/Ipratropium 3.0-0.5 MG/3 ML Neb Soln NEB PRN ×3 (08:30→20:59)
[2022-05-30] MEDS: Insulin Glargine,Human Rec. Analog 100 Units/ML 3 ML Pen SUBCUT SCH (09:47)
[2022-05-30] MEDS: Acetaminophen 325 MG Tab PO PRN (22:19)
[2022-05-31] MEDS: Furosemide 40 MG/4 ML VIAL IVPUSH SCH (07:36)
[2022-05-31] MEDS: Albuterol/Ipratropium 3.0-0.5 MG/3 ML Neb Soln NEB PRN ×3 (08:10→20:57)
[2022-05-31] MEDS: Insulin Lispro 100 Unit/ML 3 ML KwikPen SUBCUT SCH ×4 (08:15→21:21)
[2022-05-31] MEDS: predniSONE 20 MG Tab PO SCH (08:16)
[2022-05-31] MEDS: Metoprolol Succinate 50 MG Tab.ER PO SCH ×2 (08:17→21:22)
[2022-05-31] MEDS: Aspirin 81 MG Tab.EC PO SCH (08:19)
[2022-05-31] MEDS: guaiFENesin 600 MG Tab.ER PO SCH ×2 (08:20→21:22)
[2022-05-31] MEDS: Insulin Glargine,Human Rec. Analog 100 Units/ML 3 ML Pen SUBCUT SCH (10:45)
[2022-05-31] MEDS: Acetaminophen 325 MG Tab PO PRN (21:23)
[2022-06-01] MEDS: Insulin Lispro 100 Unit/ML 3 ML KwikPen SUBCUT SCH ×3 (07:51→16:51)
[2022-06-01] MEDS: Albuterol/Ipratropium 3.0-0.5 MG/3 ML Neb Soln NEB PRN (08:25)
[2022-06-01] MEDS: guaiFENesin 600 MG Tab.ER PO SCH (08:45)
[2022-06-01] MEDS: Metoprolol Succinate 50 MG Tab.ER PO SCH (08:45)
[2022-06-01] MEDS: Aspirin 81 MG Tab.EC PO SCH (08:46)
[2022-06-01] MEDS: predniSONE 20 MG Tab PO SCH (08:46)
[2022-06-01] MEDS ORDERED: Torsemide 20 MG Tab PO SCH ×2 (09:00)
[2022-06-01] MEDS: Insulin Glargine,Human Rec. Analog 100 Units/ML 3 ML Pen SUBCUT SCH (09:19)
[2022-06-01 16:14] VITALS: BP 120/73; PULSE 84
== END 2022-06-01 17:44 | disposition home or self-care (01) | DRG 291 ==
LOC: JD.ED 08:42 → JD.MS 14:40
PROVIDERS: ADMIT Hospitalist; ATTEND Hospitalist
DX: I13.0 Hypertensive heart and chronic kidney disease with heart failure and stage 1 through stage 4 chronic kidney disease, or unspecified chronic kidney disease (principal); I50.33 Acute on chronic diastolic (congestive) heart failure; J96.01 Acute respiratory failure with hypoxia; J21.8 Acute bronchiolitis due to other specified organisms; I48.91 Unspecified atrial fibrillation; E11.22 Type 2 diabetes mellitus with diabetic chronic kidney disease; Z66 Do not resuscitate; M19.90 Unspecified osteoarthritis, unspecified site; N18.30 Chronic kidney disease, stage 3 unspecified; Z96.659 Presence of unspecified artificial knee joint; Z79.899 Other long term (current) drug therapy; Z79.4 Long term (current) use of insulin; Z79.82 Long term (current) use of aspirin; Z88.5 Allergy status to narcotic agent; Z88.8 Allergy status to other drugs, medicaments and biological substances; Z98.49 Cataract extraction status, unspecified eye; Z85.828 Personal history of other malignant neoplasm of skin; Z98.890 Other specified postprocedural states; Z95.4 Presence of other heart-valve replacement
CPT/HCPCS: 36415; 71045; 71045-26; 71275; 71275-26; 80048; 80053; 81001; 82947; 83735; 83880; 84484; 85025; 85379; 85610; 85730; 86738; 87086; 87088; 87186; 87502-QW; 87634-QW; 93005; 93010; 94640; 94761; 96374; 99222; 99232; 99239; 99285; 99285-25; A9270-GY; J1815; J1815-GY; J1940; J3490; J7512; J7620-GY; Q9967